=== PATIENT | female | born 1975 | race African-American/Black ===

== ENCOUNTER 2017-05-17 12:39 | Inpatient (IN) ==
[2017-05-17] MEDS ORDERED: PHENERGAN IM ONE (13:04)
[2017-05-17] MEDS ORDERED: NS 1,000 ML IV ONE (13:08)
[2017-05-17 13:21] LABS: MANUAL DIFF NEEDED? NO
[2017-05-17 13:22] LABS: BASO% 0.2 % (0.0-0.8); EOS# 0.01 X1000 (0.0-0.7); EOS% 0.1 % (0.0-10.0); HEMATOCRIT 47.2 % (37.0-47.0); HEMOGLOBIN 15.4 g/dL (12.0-16.0); IMM GRAN# 0.06 X1000 (0.0-0.04); IMM GRAN% 0.5 % (0.0-0.5); LYMPH# 1.57 X1000 (1.2-3.4); LYMPH% 12.5 % (20.5-51.1); MCH 27.3 PG (27-31); MCHC 32.6 g/dL (33-37); MCV 83.7 FL (81-99); MONO# 0.38 X1000 (0.11-0.59); NEUT% 83.7 % (42.2-75.2); PLT 360 X1000 (130-400); RBC 5.64 XMIL (4.2-5.4)
[2017-05-17 13:50] LABS: AGAP 20; ALBUMIN 4.1 g/dL (3.5-5.0); ALKALINE PHOSPHATASE 242 U/L (32-104); AMYLASE 40 U/L (20-200); BUN 11 mg/dL (8-22); CALCIUM 9.5 mg/dL (8.8-10.2); CHLORIDE 101 mmol/L (98-107); COSMO 291; GOT 13 U/L (10-30); GPT 13 U/L (10-36); LIPASE 12 U/L (13-60); POTASSIUM 4.2 mmol/L (3.5-5.1); SODIUM 141 mmol/L (136-145); TCO2 20 mmol/L (25-35); TOTAL PROTEIN 8.4 g/dL (6.3-8.3)
--- NOTE | 2017-05-17 14:14 | Diag Imaging Result Doc PS360 ---
EXAM: PORTABLE CHEST HISTORY: Low oxygen saturation TECHNIQUE: COMPARISON: 12/20/2016 FINDINGS: The lungs are well expanded. The heart is not enlarged. The vessels are not distended. No pneumonia. No pleural effusions identified. IMPRESSION: Negative chest. Electronically signed by Rd Mccray 05/17/2017 2:12 PM
[2017-05-17 14:15] LABS: URINE CULTURE PL NEEDED? NO
[2017-05-17 14:20] LABS: BILIRUBIN URINE NEGATIVE (NEGATIVE); BLOOD URINE NEGATIVE (NEGATIVE); CLARITY CLEAR (CLEAR); COLOR YELLOW; LEUKOCYTES URINE NEGATIVE (NEGATIVE); NITRITE URINE NEGATIVE (NEGATIVE); PROTEIN URINE NEGATIVE (NEGATIVE); UROBILINOGEN URINE NORMAL
[2017-05-17 14:39] LABS: URINE SOURCE CLEAN CATCH
[2017-05-17 14:41] LABS: URINE EPITHELIAL CELLS <10 /HPF (<10); URINE RBC <10 /HPF (<10); URINE WBC <10 /HPF (<10)
--- NOTE | 2017-05-17 15:38 | Diag Imaging Result Doc PS360 ---
EXAM: CT ABD/PELVIS W/ IV CONT ONLY HISTORY: abd pain, N/V TECHNIQUE: Dose reduction protocol COMPARISON: 11/19/2015 FINDINGS: The gallbladder is contracted. No calcified gallstones. There is fatty infiltration of the liver. There are scattered splenic granuloma. The spleen is not enlarged. Normal pancreas and adrenal glands. Normal enhancement of the kidneys. No hydronephrosis. Normal aorta. No bowel obstruction. Normal appendix. No abscess. The urinary bladder is distended and appears normal. The uterus has been removed. No pelvic mass. IMPRESSION: 1.Mild fatty infiltration of the liver 2.Hysterectomy 3.Normal appendix. No bowel obstruction. Electronically signed by Rd Mccray 05/17/2017 3:36 PM
[2017-05-17 15:53] LABS: BLOOD TYPE VENOUS; PCO2(98.6) 44 mmHg (40-60); PO2(98.6) 34 mmHg (30-55); SAMPLE BLOOD; SAO2 69.7 % (40.0-85.0); pH(98.6) 7.28 (7.32-7.43)
[2017-05-17] MEDS ORDERED: NS 1,000 ML IV PRN (16:33)
--- NOTE | 2017-05-17 16:38 | PROVIDER DOCUMENTATION ---
HPI-Abdominal Pain/GI Problem - General Chief Complaint: Nausea/Vomiting Stated Complaint: N/V/Abd Pain Time Seen by Provider: 05/17/17 13:00 Source: patient Allergies/Adverse Reactions: Patient Allergies Allergy/AdvReac Type Severity Reaction Status Date / Time No Known Allergies Allergy Verified 05/17/17 12:42 Home Medications: Home Medication List Medication Instructions Recorded Confirmed Last Taken Type Insulin Glargine [Lantus] 110 unit SQ HS 12/21/15 12/21/15 Unknown History Insulin Lispro [Humalog] 30 unit SQ DIRECTED 12/21/15 12/21/15 Unknown History Azithromycin [Zithromax Z-Giles] 250 mg PO DIRECTED #1 pkg 12/20/16 Unknown Rx Duloxetine [Cymbalta] 20 mg PO DAILY 12/20/16 12/20/16 Unknown History Guaifenesin/Codeine [Robitussin-AC] 10 ml PO Q4H PRN PRN #8 oz 12/20/16 Unknown Rx Lisinopril/Hydrochlorothiazide 1 tab PO DAILY 12/20/16 12/20/16 Unknown History [Lisinopril-Hctz 10-12.5 mg Tab] - History of Present Illness-ABD Nature of Presenting Problems: 42 y/o F with history of insulin dependent DM, HTN presents with N/V, abdominal pain that began yesterday. Patient states her BG has been in the 500's the past several days. She became lightheaded when walking to the bathroom today and had to sit on the floor, at that point she felt too lightheaded to get up out of the floor and a friend called EMS. On ROS, she endorses polyuria, dry mouth. Denies LOC, head injury, CP or SOB. Abdominal Pain Onset Location: reports: LLQ, generalized abdomen Quality of Pain: reports: aching Severity in ED: reports: moderate Onset/Duration: reports: 24 hours ago Timing: reports: still present Associated Symptoms: reports: nausea, vomiting, other (lightheadedness). denies : chest pain, cough, diaphoresis, diarrhea, fever/chills, shortness of breath, syncope Last BM: 24 hours ago Dark Stools Present?: reports: none noticed Rectal Bleeding: reports: none Review of Systems - Adult - REVIEW OF SYSTEMS - ADULT Constitutional: reports: no symptoms reported. denies: chills, fever Eyes: reports: no symptoms reported. denies: decreased vision, blurred vision, double vision Ears, Nose, Mouth & Throat: reports: no symptoms reported Cardiovascular: reports: no symptoms reported. denies: chest pain, edema, syncope Respiratory: reports: no symptoms reported. denies: cough, shortness of breath Gastrointestinal: reports: see HPI Genitourinary: reports: no symptoms reported. denies: dysuria, hematuria Musculoskeletal: reports: no symptoms reported. denies: back pain, joint pain Integumentary: reports: no symptoms reported. denies: itching, rash Neurological: reports: no symptoms reported. denies: dizziness/vertigo, headache/migraines, numbness, slurred speech, syncope Psychiatric: reports: no symptoms reported Endocrine: reports: no symptoms reported Hematologic/Lymphatic: reports: no symptoms reported Allergic/Immunologic: reports: no symptoms reported All Other Systems: Reviewed and Negative Past History - Adult - PAST MEDICAL HISTORY-ADULT Review of Records: reports: Old Records Reviewed, Nursing Assessment Review, Medications Reviewed, Social history reviewed & non-contributory. Major Childhood Illnesses: reports: denies history Cardiovascular: reports: HTN Genitourinary: reports: kidney disease Endocrine/Immune: reports: Diabetes - PRIOR SURGERIES/PROCEDURES Surgical/Procedure History: reports: hysterectomy, breast - IMMUNIZATION STATUS Childhood Immunizations: See Nurse Assessment Flu Vaccine: See Nurse Assessment - FAMILY HISTORY Family History: reviewed, not pertinent Physical Exam-General - PHYSICAL EXAM-ADULT Initial Vital Signs Reviewed: Yes - CONSTITUTIONAL General Appearance: alert, no apparent distress - EYES Eyes: PERRL/EOMI. negative: scleral icterus - HEAD, EARS, NOSE, MOUTH & THROAT HENMT: other (dry mucous membranes) - NECK Neck: non-tender, full range of motion, supple, normal inspection - RESPIRATORY Respiratory: chest non-tender, lungs clear, normal breath sounds, no pleuratic chest pain, no respiratory distress, no accessory muscle use - CARDIOVASCULAR Cardiovascular: normal peripheral pulses, regular rate, rhythm, no edema - GASTROINTESTINAL (ABDOMEN) Abdominal Exam: normal bowel sounds, soft, tenderness - MUSCULOSKELETAL Back Exam: normal inspection, no CVA tenderness, no vertebral tenderness - SKIN Integumentary: normal color - NEUROLOGIC 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 negative: aphasia, EOM palsy, facial droop, focal weakness, motor weakness, sensory deficit - PSYCHIATRIC Psych/Mental Status: normal mood/affect, normal thought content, normal thought process, oriented x 3 Progress - PLAN OF CARE/RESULTS Progress/Plan/Lab Results: Vital Signs - 8 hr 05/17/17 12:46 05/17/17 14:05 05/17/17 15:05 Temperature 96.9 F L Pulse Rate 88 100 H 94 H Respiratory Rate 20 16 16 Blood Pressure 117/79 147/91 112/71 O2 Sat by Pulse Oximetry 97 98 98 05/17/17 16:00 Temperature Pulse Rate 93 H Respiratory Rate 16 Blood Pressure 123/79 O2 Sat by Pulse Oximetry 97 Laboratory Results - last 24 hr 05/17/17 05/17/17 05/17/17 12:51 13:20 13:20 WBC 12.61 H RBC 5.64 H Hgb 15.4 Hct 47.2 H MCV 83.7 MCH 27.3 MCHC 32.6 L RDW Std Deviation 12.4 Plt Count 360 MPV 10.0 Immature Gran % (Auto) 0.5 Neut % (Auto) 83.7 H Lymph % (Auto) 12.5 L [place] % (Auto) 3.0 Eos % (Auto) 0.1 Baso % (Auto) 0.2 Immature Gran # (Auto) 0.06 H Neut # (Auto) 10.56 H Lymph # (Auto) 1.57 [place] # (Auto) 0.38 Eos # (Auto) 0.01 Baso # (Auto) 0.03 Specimen Type VBG pH VBG pCO2 VBG pO2 VBG HCO3 VBG O2 Saturation VBG Base Excess VBG Lactate Sodium 141 Potassium 4.2 Chloride 101 Carbon Dioxide 20 L Anion Gap 20 BUN 11 Creatinine 0.6 Estimated GFR/1.73 m2 > 60 BUN/Creatinine Ratio 18 Glucose 282 H POC Glucose 257 H Calculated Osmolality 291 Calcium 9.5 Total Bilirubin 0.30 AST 13 ALT 13 Alkaline Phosphatase 242 H Total Protein 8.4 H Albumin 4.1 Globulin 4.0 Albumin/Globulin Ratio 1.0 Amylase 40 Lipase 12 L Urine Source Urine Color Urine Clarity Urine Turbidity Urine pH Ur Specific [place] Urine Protein Ur Glucose (Stick) Urine Ketones Ur Ketones (Stick) Urine Blood Urine Nitrite Urine Bilirubin Urine Urobilinogen Urobilinogen Dipstick Urine Leukocytes Urine WBC (Auto) Urine RBC (Auto) U Epithel Cells (Auto) Urine Bacteria (Auto) Urine Microscopic RBC Urine WBC Urine Microscopic WBC Ur Epithelial Cells Urine Bacteria Urine Yeast Urine Glucose 05/17/17 05/17/17 14:05 15:30 WBC RBC Hgb Hct MCV MCH MCHC RDW Std Deviation Plt Count MPV Immature Gran % (Auto) Neut % (Auto) Lymph % (Auto) [place] % (Auto) Eos % (Auto) Baso % (Auto) Immature Gran # (Auto) Neut # (Auto) Lymph # (Auto) [place] # (Auto) Eos # (Auto) Baso # (Auto) Specimen Type VENOUS VBG pH 7.28 L VBG pCO2 44 VBG pO2 34 VBG HCO3 19.3 L VBG O2 Saturation 69.7 VBG Base Excess -6.0 L VBG Lactate 2.40 H Sodium Potassium Chloride Carbon Dioxide Anion Gap BUN Creatinine Estimated GFR/1.73 m2 BUN/Creatinine Ratio Glucose POC Glucose Calculated Osmolality Calcium Total Bilirubin AST ALT Alkaline Phosphatase Total Protein Albumin Globulin Albumin/Globulin Ratio Amylase Lipase Urine Source Cancelled Urine Color Cancelled Urine Clarity CLEAR Urine Turbidity Cancelled Urine pH Cancelled Ur Specific [place] Cancelled Urine Protein Cancelled Ur Glucose (Stick) Cancelled Urine Ketones 3+(Large) A Ur Ketones (Stick) Cancelled Urine Blood Cancelled Urine Nitrite Cancelled Urine Bilirubin Cancelled Urine Urobilinogen NORMAL Urobilinogen Dipstick Cancelled Urine Leukocytes Cancelled Urine WBC (Auto) Cancelled Urine RBC (Auto) Cancelled U Epithel Cells (Auto) Cancelled Urine Bacteria (Auto) Cancelled Urine Microscopic RBC <10 Urine WBC NEGATIVE Urine Microscopic WBC <10 Ur Epithelial Cells <10 Urine Bacteria NEGATIVE Urine Yeast PRESENT Urine Glucose 3+(500 mg/dL) A Orders Category Date Time Status Saline Loc DIRECTED Care 05/17/17 13:02 Active NPO Diet 05/17/17 13:02 Active CHEST-PORTABLE [RAD] Stat Exams 05/17/17 13:[address] ABD/PELVIS W/ IV CONT ONLY [CT] Stat Exams 05/17/17 15:00 Completed AMYLASE [CHEM] Stat Lab 05/17/17 13:20 Completed CBC WITH ELECTRONIC DIFF [HEME] Stat Lab 05/17/17 13:20 Completed COMPREHENSIVE METABOLIC PANEL [CHEM] Stat Lab 05/17/17 13:20 Completed LIPASE [CHEM] Stat Lab 05/17/17 13:20 Completed VBG [VENOUS BLOOD GAS] [RESP] Routine Lab 05/17/17 15:30 Completed ua [URINALYSIS PL W/POSS RFLX CULT] [URINALYSIS] Stat Lab 05/17/17 14:05 Completed 0.9% Sodium Chloride Inj [Ns] 1,000 ml Med 05/17/17 13:08 Discontinued IV 999 mls/hr Promethazine [Phenergan] Med 05/17/17 13:04 Discontinued 25 mg IM NOW ONE Result Diagrams: 05/17/17 13:20 05/17/17 13:20 Departure - Departure Date of Disposition Decision: 05/17/17 Time of Disposition Decision: 16:42 DIAGNOSIS: Metabolic acidosis, Hyperglycemia Nausea and vomiting Qualifiers: Vomiting type: unspecified Vomiting Intractability: unspecified Qualified Code( s): R11.2 - Nausea with vomiting, unspecified Abdominal pain Qualifiers: Abdominal location: unspecified location Qualified Code(s): R10.9 - Unspecified abdominal pain Disposition: ADMITTED INPATIENT 09 Certified Medical Emergency: Emergent Condition: Stable - Critical Care Note This patient required my direct & personal management of CC.: No Attestation - Physician/ MICHAEL Attestation Patient care was provided by Advanced Practice Provider:: Yes Advanced Practice Provider:: Charlene Eng Advanced Practice Provider documentation review:: The Mid-level provider documentation, treatment plan and medical decision making was reviewed by the physician who agrees with all treatment and medical decision making by the MLP.
[2017-05-17] MEDS ORDERED: PHENERGAN ONE (17:38)
[2017-05-17] MEDS ORDERED: PHENERGAN IV ONE (17:40)
[2017-05-17] MEDS ORDERED: SODIUM CHLORIDE 0.9% INJ ONE (18:25)
[2017-05-17] MEDS ORDERED: ZOFRAN IV PRN (19:22)
[2017-05-17] MEDS ORDERED: PHENERGAN IV PRN (19:22)
[2017-05-17] MEDS ORDERED: SODIUM CHLORIDE 0.9% INJ PRN (19:22)
[2017-05-17] MEDS: HUMALOG DOSE (PARKWAY) SUBQ SCH (20:25)
[2017-05-17] MEDS: NS 1,000 ML IV SCH (20:26)
[2017-05-18] MEDS ORDERED: IMODIUM PO ONE (00:37)
[2017-05-18] MEDS: HUMALOG DOSE (PARKWAY) SUBQ SCH ×4 (05:56→16:56)
[2017-05-18] MEDS: NS 1,000 ML IV SCH ×3 (05:57→13:19)
[2017-05-18 06:55] LABS: HEMOGLOBIN 13.1 g/dL (12.0-16.0); MCH 27.1 PG (27-31); MCV 84.9 FL (81-99); RBC 4.83 XMIL (4.2-5.4)
[2017-05-18 07:00] LABS: AGAP 10; ALBUMIN 3.3 g/dL (3.5-5.0); ALKALINE PHOSPHATASE 183 U/L (32-104); BUN 8 mg/dL (8-22); CALCIUM 8.2 mg/dL (8.8-10.2); CHLORIDE 102 mmol/L (98-107); COSMO 271; GOT 12 U/L (10-30); GPT 10 U/L (10-36); POTASSIUM 3.6 mmol/L (3.5-5.1); SODIUM 133 mmol/L (136-145); TCO2 21 mmol/L (25-35); TOTAL PROTEIN 6.5 g/dL (6.3-8.3)
[2017-05-18] MEDS ORDERED: PRILOSEC PO SCH (07:00)
[2017-05-18] MEDS ORDERED: PRINIVIL PO SCH (09:00)
[2017-05-18] MEDS ORDERED: HYDROCHLOROTHIAZIDE PO SCH (09:00)
[2017-05-18] MEDS: NEURONTIN PO SCH ×3 (09:28→16:56)
--- NOTE | 2017-05-18 10:59 | PROGRESS NOTE ---
DATE: 05/18/2017 SUBJECTIVE: The patient notes that she is feeling much better this morning. She is having much less abdominal pain, less coughing, less congestion. Denies any nausea, vomiting. States that she feels like she may be able to eat later on. OBJECTIVE: Vital Signs: On physical temp 99.4, pulse 87, respiratory rate 18, BP 112/59, satting 97% on room air. General: Patient is awake, alert, currently in no respiratory distress. Neck: Supple. CV: Regular rate. Chest: Clear. Abdomen: Soft. Much less tender than yesterday. Positive bowel sounds. LABS: CBC improved with WBCs at 10, sodium 133, glucose 207. ASSESSMENT: 1. Acute volume depletion secondary to nausea, vomiting, resolved. 2. Abdominal pain secondary to nausea and vomiting likely viral gastroenteritis appears resolved. 3. Diabetes. Blood sugars are elevated, although she did not have insulin yesterday. We will continue sliding scale and pattern Accu-Chek's today. We will advance her diet. PLAN: Hopefully, the patient can discharge home later this afternoon if she is able to eat and drink better. We will continue to follow. Continue IV fluids. We will not restart her home insulin yet until she is eating and will follow. cc: Tano Watts MD
[2017-05-18] MEDS ORDERED: TYLENOL PO ONE (13:38)
[2017-05-18 13:39] VITALS: BP 96/57
--- NOTE | 2017-05-18 14:11 | HISTORY AND PHYSICAL ---
CHIEF COMPLAINT: Nausea, vomiting, abdominal pain x24 hours. HISTORY OF PRESENT ILLNESS: This is a 42-year-old female with a history of insulin-dependent diabetes, and hypertension, who presented to the emergency room complaining of about 24 hours of abdominal pain, nausea, vomiting. She did state that her blood sugars have been in the 500s over the prior 3-4 days. Prior to coming to the emergency room she became lightheaded while walking and she had to sit on the floor. She felt that she was too lightheaded to get up and walk therefore EMS was called. She denied any chest pain, palpitations, syncope, diaphoresis. shortness of breath or cough. She denies any known sick contacts. PAST MEDICAL HISTORY: Insulin-dependent diabetes, hypertension, peripheral neuropathy. PAST SURGICAL HISTORY: Hysterectomy, and breast reduction. SOCIAL HISTORY: She denies alcohol, tobacco, or illicit drug use. ALLERGIES: No known drug allergies. HOME MEDICATIONS: Lisinopril/hydrochlorothiazide 10/12.5 daily, Humalog 30 units as directed, Lantus 110 units at bedtime, Norvasc 10 mg daily, Neurontin 800 mg 3 times a day. REVIEW OF SYSTEMS: A 14 point review of systems is discussed with the patient with pertinent positives being stated in the HPI. She denied chest pain, palpitations, syncope, diarrhea, constipation, cough, fever, chills, hematuria, dysuria, frequency, urgency. PHYSICAL EXAMINATION: GENERAL: This is a 42-year-old female who is lying in the bed, in no distress. VITAL SIGNS: Blood pressure is 123/79, with a heart rate of 90, respirations are 18, oxygen saturations are 95%-98% on room air. HEENT: Head is normocephalic, atraumatic. Pupils equal, round, react to light. EOMs are intact. Sclerae are anicteric. Mucous membranes are moist. NECK: Supple with trachea midline. CARDIOVASCULAR: Regular rate and rhythm. S1 and S2 are appreciated. PULMONARY: Breath sounds are clear with no increased work of breathing noted. GASTROINTESTINAL: Abdomen is soft, nontender, nondistended with bowel sounds in all 4 quadrants. BACK: No CVAT. No spine tenderness. MUSCULOSKELETAL: Good range of motion to joints. SKIN: Warm and dry. EXTREMITIES: No clubbing, cyanosis, or edema. Calves are nontender. Pulses are palpable x4. NEUROLOGIC: She is alert and oriented x3. LABS: WBC of 12.6, with a hemoglobin of 15.4, hematocrit 47.2, and platelets of 360,000. Sodium is 141, potassium 4.2, BUN 11, creatinine 0.6, with a glucose of 282. Lipase is 12. Acetone is negative. IMAGING: CT of the abdomen and pelvis revealed mild fatty infiltration of the liver, normal appendix, no bowel obstruction, no abscess, No pelvic mass. ASSESSMENT: This is a 42-year-old female who is sitting in the bed, in no distress. 1. Acute volume depletion secondary to nausea and vomiting. 2. Abdominal pain secondary to nausea and vomiting. This is likely gastroenteritis. 3. Insulin-dependent diabetes. 4. Hypertension. 5. Leukocytosis. 6. Hyperglycemia. PLAN: She will be admitted to the hospital, placed on telemetry. We will identify her home medications and continue as appropriate. We will give IV hydration with nausea medication, pattern blood glucose with sliding scale insulin. For DVT prophylaxis will use SCDs and for GI prophylaxis Prilosec. Further treatments pending hospital course. Dictated by ALEXA Bocanegra for Tano Watts MD cc: ALEXA Bocanegra MD
--- NOTE | 2017-05-19 13:07 | DISCHARGE SUMMARY ---
ADMISSION DATE: 05/17/2017 DISCHARGE DATE: 05/18/2017 DIAGNOSES: 1. Acute volume depletion secondary to nausea and vomiting resolved. 2. Abdominal pain secondary to nausea and vomiting likely gastroenteritis resolved. 3. Insulin-dependent diabetes. 4. Hypertension. 5. Leukocytosis resolved. DIAGNOSTICS: 1. 05/17/2017 chest x-ray revealed negative chest. Lungs are well expanded. Heart is not enlarged. Vessels are not distended. No pneumonia and no pleural effusions. 2. CT of the abdomen and pelvis. Mild fatty infiltration of the liver, hysterectomy and normal appendix. No bowel obstruction. HOSPITAL COURSE: Ms. Rivera presented to the emergency room with about 24 hours of abdominal pain, nausea, vomiting as well as elevated blood sugars over the prior 3-4 days. She did have an episode of feeling lightheaded while walking for which she presented to the emergency room. She was found to have a white count of 12.6. It did decrease to 10.35. Blood sugar stayed in the 180- 250 range. We did monitor her and we gave IV hydration. Diet was advanced through the day and she was able to have a GI soft diet with no nausea, vomiting or abdominal pain. Therefore, she is being discharged. DISCHARGE PHYSICAL EXAMINATION: Cardiovascular: Regular rate and rhythm S1, S2 appreciated. Pulmonary: Breath sounds are clear. No increased work of breathing noted. Gastrointestinal: Abdomen is soft, nontender, nondistended with bowel sounds in all 4 quadrants. Extremities: No clubbing, cyanosis, or edema. Calves are nontender. Pulses are palpable x4. DISCHARGE MEDICATIONS: Lisinopril hydrochlorothiazide 10/12.5 daily, Humalog 30 units as directed. Lantus 110 units at bedtime. Norvasc 10 mg daily. Neurontin 800 mg t.i.d. She has been instructed not to start her Lantus until she is eating normally. FOLLOWUP: Her primary care physician in 1-2 weeks sooner if needed. She is being discharged home in stable condition with family members. TIME SPENT: This is a greater than 30 minute discharge. Dictated by ALEXA Bocanegra for Tano Watts MD cc: ALEXA Bocanegra MD
== END 2017-05-18 17:08 | disposition home or self-care (01) ==
LOC: P.ED 12:39 → P.MEDSURG 18:28
PROVIDERS: ATTEND Family Medicine

== ENCOUNTER 2017-05-30 19:24 | Inpatient (IN) ==
[2017-05-30 21:10] LABS: MANUAL DIFF NEEDED? NO
[2017-05-30 21:14] LABS: BASO% 0.3 % (0.0-0.8); EOS# 0.02 X1000 (0.0-0.7); EOS% 0.2 % (0.0-10.0); HEMATOCRIT 46.6 % (37.0-47.0); HEMOGLOBIN 15.5 g/dL (12.0-16.0); IMM GRAN# 0.02 X1000 (0.0-0.04); IMM GRAN% 0.2 % (0.0-0.5); LYMPH# 1.45 X1000 (1.2-3.4); LYMPH% 14.8 % (20.5-51.1); MCH 27.3 PG (27-31); MCHC 33.3 g/dL (33-37); MCV 82.2 FL (81-99); MONO# 0.42 X1000 (0.11-0.59); MONO% 4.3 % (1.7-9.3); NEUT% 80.2 % (42.2-75.2); PLT 363 X1000 (130-400); RBC 5.67 XMIL (4.2-5.4)
[2017-05-30] MEDS ORDERED: SODIUM CHLORIDE 0.9% INJ ONE (21:26)
[2017-05-30] MEDS ORDERED: LR 1,000 ML IV PRN (21:26)
[2017-05-30] MEDS ORDERED: MORPHINE IV ONE (21:26)
[2017-05-30] MEDS ORDERED: PHENERGAN IV ONE (21:26)
[2017-05-30 21:37] LABS: AGAP 19; ALBUMIN 4.1 g/dL (3.5-5.0); ALKALINE PHOSPHATASE 258 U/L (32-104); AMYLASE 39 U/L (20-200); BUN 10 mg/dL (8-22); CHLORIDE 97 mmol/L (98-107); COSMO 291; GOT 21 U/L (10-30); GPT 15 U/L (10-36); LIPASE 16 U/L (13-60); POTASSIUM 5.3 mmol/L (3.5-5.1); SODIUM 139 mmol/L (136-145); TCO2 23 mmol/L (25-35); TOTAL PROTEIN 8.1 g/dL (6.3-8.3)
[2017-05-30] MEDS ORDERED: HUMALOG (PARKWAY) IV ONE (23:08)
[2017-05-30] MEDS ORDERED: LANTUS INSULIN (PARKWAY) SUBQ ONE (23:09)
[2017-05-30] MEDS ORDERED: HUMALOG DOSE (PARKWAY) SUBQ ONE (23:11)
[2017-05-30] MEDS ORDERED: HUMALOG (PARKWAY) ONE (23:16)
[2017-05-30 23:30] LABS: BILIRUBIN URINE NEGATIVE (NEGATIVE); BLOOD URINE NEGATIVE (NEGATIVE); CLARITY CLEAR (CLEAR); COLOR YELLOW; LEUKOCYTES URINE NEGATIVE (NEGATIVE); NITRITE URINE NEGATIVE (NEGATIVE); PROTEIN URINE NEGATIVE (NEGATIVE); SP GRAVITY URINE 1.015; UROBILINOGEN URINE NORMAL
[2017-05-30 23:37] LABS: URINE EPITHELIAL CELLS <10 /HPF (<10); URINE RBC <10 /HPF (<10); URINE WBC <10 /HPF (<10)
[2017-05-30 23:41] LABS: URINE CULTURE PL NEEDED? YES; URINE SOURCE CATH
[2017-05-31] MEDS ORDERED: REGLAN IV ONE ×2 (00:33→02:18)
[2017-05-31 02:13] LABS: AGAP 13; ALBUMIN 3.8 g/dL (3.5-5.0); ALKALINE PHOSPHATASE 248 U/L (32-104); BUN 10 mg/dL (8-22); CALCIUM 9.8 mg/dL (8.8-10.2); CHLORIDE 104 mmol/L (98-107); COSMO 293; GOT 12 U/L (10-30); GPT 13 U/L (10-36); SODIUM 140 mmol/L (136-145); TCO2 23 mmol/L (25-35); TOTAL PROTEIN 7.8 g/dL (6.3-8.3)
[2017-05-31] MEDS ORDERED: HUMALOG (PARKWAY) IV ONE (02:19)
[2017-05-31] MEDS ORDERED: NS 1,000 ML IV ONE (02:20)
[2017-05-31] MEDS ORDERED: HUMULIN R DOSE (PARKWAY) SUBQ ONE (02:20)
[2017-05-31] MEDS ORDERED: HUMALOG (PARKWAY) ONE (02:38)
[2017-05-31] MEDS: ZOFRAN IV PRN (02:49)
--- NOTE | 2017-05-31 02:53 | PROVIDER DOCUMENTATION ---
This chart was entered by Sil Murillo Scribe, acting as scribe for Uriah Foster MD. HPI-General Adult - General Chief Complaint: Vomiting Stated Complaint: VOMITING Time Seen by Provider: 05/30/17 21:01 Source: patient Allergies/Adverse Reactions: Patient Allergies Allergy/AdvReac Type Severity Reaction Status Date / Time No Known Allergies Allergy Verified 05/17/17 12:42 Home Medications: Home Medication List Medication Instructions Recorded Confirmed Last Taken Type Insulin Glargine [Lantus] 110 unit SQ HS 12/21/15 05/17/17 05/16/17 21:00 History Insulin Lispro [Humalog] 30 unit SQ DIRECTED 12/21/15 05/17/17 05/16/17 21: 00 History Lisinopril/Hydrochlorothiazide 1 tab PO DAILY 12/20/16 05/17/17 Unknown History [Lisinopril-Hctz 10-12.5 mg Tab] Amlodipine Besylate [Norvasc] 10 mg PO DAILY 05/17/17 05/17/17 05/16/17 17:00 History Gabapentin [Neurontin] 800 mg PO TID 05/17/17 05/17/17 Unknown History Metoclopramide HCl [Reglan] 5 mg PO AC + HS #120 tablet 05/31/17 Unknown Rx - History of Present Illness -Gen Adult Nature of Presenting Problems: Pt is a 42 year old female who came to the ED with a cc of vomiting since this morning. Pt reports her blood sugar runs high in the mornings. Location of Pain/Injury: reports: none Pain Radiation: reports: no radiation Quality of Pain: reports: none Severity: reports: mild Onset/Duration: reports: this morning Timing: reports: still present Context/Activities at Onset: reports: none Modifying Factors: improves with: nothing Associated Symptoms: reports: nausea, vomiting, weakness Similar Symptoms Previously?: Yes Recently seen or treated by another doctor?: Yes - Diabetes Related Context Context: reports: high blood sugar Review of Systems - Adult - REVIEW OF SYSTEMS - ADULT Constitutional: denies: chills, fever Eyes: reports: no symptoms reported Ears, Nose, Mouth & Throat: reports: no symptoms reported Cardiovascular: denies: chest pain, syncope Respiratory: reports: no symptoms reported Gastrointestinal: reports: nausea, vomiting. denies: diarrhea, frequent heartburn Genitourinary: denies: flank pain, hematuria Musculoskeletal: reports: no symptoms reported Integumentary: reports: no symptoms reported Neurological: reports: no symptoms reported Psychiatric: reports: no symptoms reported Endocrine: reports: no symptoms reported Hematologic/Lymphatic: reports: no symptoms reported Allergic/Immunologic: reports: no symptoms reported All Other Systems: Reviewed and Negative Past History - Adult - PAST MEDICAL HISTORY-ADULT Review of Records: reports: Old Records Reviewed, Nursing Assessment Review, Medications Reviewed, Social history reviewed & non-contributory. Major Childhood Illnesses: reports: denies history Cardiovascular: reports: HTN Respiratory: reports: denies history Gastrointestinal: reports: denies history Obstetrical/Gynecological: reports: denies history Genitourinary: reports: kidney disease Musculoskeletal: reports: denies history Neurological: reports: denies history Endocrine/Immune: reports: Diabetes Other Conditions: reports: denies history - PRIOR SURGERIES/PROCEDURES Surgical/Procedure History: reports: hysterectomy, breast - IMMUNIZATION STATUS Childhood Immunizations: See Nurse Assessment Flu Vaccine: See Nurse Assessment - FAMILY HISTORY Family History: reviewed, not pertinent Physical Exam-General - PHYSICAL EXAM-ADULT Initial Vital Signs Reviewed: Yes - CONSTITUTIONAL General Appearance: alert, mild distress - EYES Eyes: PERRL/EOMI, pink conjunctivae - HEAD, EARS, NOSE, MOUTH & THROAT HENMT: normocephalic/atraumatic, moist mucous membranes - NECK Neck: non-tender, full range of motion - RESPIRATORY Respiratory: chest non-tender, lungs clear, normal breath sounds - CARDIOVASCULAR Cardiovascular: normal peripheral pulses, regular rate, rhythm - GASTROINTESTINAL (ABDOMEN) Abdominal Exam: normal bowel sounds, soft, tenderness (suprapubic) - MUSCULOSKELETAL Back Exam: normal inspection, no CVA tenderness Extremity: normal range of motion, non-tender - SKIN Integumentary: normal turgor, warm/dry - NEUROLOGIC Neurologic: grossly normal - PSYCHIATRIC Psych/Mental Status: normal mood/affect, normal thought content, normal thought process, oriented x 3 Progress - PLAN OF CARE/RESULTS Progress/Plan/Lab Results: Vital Signs - 8 hr 05/30/17 19:53 Temperature 97.5 F L Pulse Rate 111 H Respiratory Rate 16 Blood Pressure 154/80 O2 Sat by Pulse Oximetry 100 Laboratory Results - last 24 hr 05/30/17 05/30/17 20:54 20:57 WBC 9.78 RBC 5.67 H Hgb 15.5 Hct 46.6 MCV 82.2 MCH 27.3 MCHC 33.3 RDW Std Deviation 12.4 Plt Count 363 MPV 10.0 Immature Gran % (Auto) 0.2 Neut % (Auto) 80.2 H Lymph % (Auto) 14.8 L Coffee % (Auto) 4.3 Eos % (Auto) 0.2 Baso % (Auto) 0.3 Immature Gran # (Auto) 0.02 Neut # (Auto) 7.84 H Lymph # (Auto) 1.45 Coffee # (Auto) 0.42 Eos # (Auto) 0.02 Baso # (Auto) 0.03 POC Glucose 275 H Orders Category Date Time Status AMYLASE [CHEM] Stat Lab 05/30/17 20:54 Received CBC WITH DIFF [HEME] Stat Lab 05/30/17 20:54 Completed COMPREHENSIVE METABOLIC PANEL [CHEM] Stat Lab 05/30/17 20:54 Received LIPASE [CHEM] Stat Lab 05/30/17 20:54 Received TEST-URINE [PREG] Stat Lab 05/30/17 20:[address] W/POSS RFLX CULT [URINALYSIS] Stat Lab 05/30/17 20:44 Uncollected Result Diagrams: 05/30/17 20:54 05/31/17 01:05 - REASSESSMENT Reassessment #1 Time Reassessed: 23:00 Status: improving Departure - Departure Date of Disposition Decision: 05/31/17 Time of Disposition Decision: 02:30 DIAGNOSIS: Diabetic gastroparesis Intractable vomiting Qualifiers: Vomiting type: cyclical vomiting Nausea presence: with nausea Qualified Code(s) : G43.A1 - Cyclical vomiting, intractable Disposition: ADMITTED INPATIENT 09 Certified Medical Emergency: Emergent Condition: Fair Additional Freetext Instructions: IT IS CRITICAL THAT BLOOD SUGAR BE WELL CONTROLLED OR VOMITING AFTER EATING WILL CONTINUE THE REGLAN WILL HELP GASTROPARESIS ED Follow Up Instructions: You have been treated by a care provider in the Emergency Department. These instructions are being provided to you so you can have an understanding of how to care for yourself upon discharge. Upon discharge from the Emergency Department, you are responsible for making arrangements for follow-up care by a physician of your choice. Take all prescribed medications as directed. Return to the Emergency Department immediately for any new or worsening symptoms. You may call the Physician Referral phone number at [phone] to obtain a list of Physicians who are taking new patients. Prescriptions: Metoclopramide HCl [Reglan] 5 mg PO AC + HS #120 tablet Referrals and Follow-Ups: Deep Cruz MD [Primary Care Provider] - Work Excuses: Return to School/Parent Work - Critical Care Note This patient required my direct & personal management of CC.: No This chart was documented by the indicated scribe, (Sil Murillo Scribe) and accurately reflects the services I performed and decisions made by me, Uriah Foster MD, as attested by the provider's signature.
--- NOTE | 2017-05-31 08:03 | Diag Imaging Result Doc PS360 ---
EXAM: ABDOMEN FLAT/UPRIGHT - 05/31/2017 HISTORY: VOMITING TECHNIQUE: Supine and upright abdomen COMPARISON: 11/19/2015 FINDINGS: There is a large amount retained fecal debris in the colon suggesting constipation. The bowel gas pattern otherwise appears nonspecific and nonobstructive. There is no free air identified. There are some calcified granulomas from old granulomatous disease at the spleen noted. There are a few small calcifications at the medial lower abdomen which are stable and compatible phlebolith. IMPRESSION: Evidence of constipation. Nonspecific bowel gas pattern otherwise. Electronically signed by Eros Bosch 05/31/2017 8:01 AM
[2017-05-31 09:59] LABS: HEMOGLOBIN A1C 11.3 % (4.8-6.0)
[2017-05-31] MEDS: NORVASC PO SCH (10:33)
[2017-05-31] MEDS: HUMALOG DOSE (PARKWAY) SUBQ SCH ×3 (12:06→21:50)
[2017-05-31] MEDS: REGLAN IV SCH ×3 (12:13→23:00)
[2017-05-31] MEDS: NEURONTIN PO SCH ×2 (13:26→21:49)
[2017-05-31] MEDS ORDERED: CITRATE OF MAGNESIA PO ONE (15:52)
--- NOTE | 2017-05-31 16:47 | HISTORY AND PHYSICAL ---
CHIEF COMPLAINT: Vomiting. HISTORY OF PRESENT ILLNESS: This is a 42-year-old female who presented to the emergency room complaining of vomiting off and on through the day as well as high blood sugar. She does have a long history of vomiting being admitted from May 17 to with the same symptoms. Abdominal x-ray revealed constipation. Blood sugars were in the 270-370 range in the emergency room. She was given IV hydration as well as Reglan and insulin in the emergency room, and admitted for further evaluation and treatment. PAST MEDICAL HISTORY: Insulin-dependent diabetes, hypertension, peripheral neuropathy, noncompliance. PAST SURGICAL HISTORY: Hysterectomy and breast reduction. SOCIAL HISTORY: She denies alcohol, tobacco, or illicit drug use. ALLERGIES: No known drug allergies. HOME MEDICATIONS: Humalog 30 units subcutaneous before meals, Lantus 110 units at bedtime, Neurontin 800 mg t.i.d., Norvasc 10 mg daily, lisinopril/ hydrochlorothiazide 1 tablet daily, Reglan 5 mg with meals and at bedtime. REVIEW OF SYSTEMS: A 14 point review of systems is discussed with patient with pertinent positives being nausea and abdominal pain. She denied chest pain, palpitations, dizziness, syncope, diarrhea, cough, fever, chills, hematuria, dysuria, frequency or urgency. PHYSICAL EXAMINATION: GENERAL: This is a 42-year-old female who is lying in the bed with no distress. VITAL SIGNS: Blood pressure is 127/72 with a heart rate of 88, respirations are 16, temperature is 97.5 degrees with room air saturations of 99-100%. HEENT: Head is normocephalic, atraumatic. Pupils equal, round, reactive to light. EOMs are intact. Sclerae anicteric. Mucous membranes are moist. NECK: Supple with trachea midline. CARDIOVASCULAR: Regular rate and rhythm. S1 and S2 appreciated. No rubs, murmurs, or gallops noted. PULMONARY: Breath sounds are clear with no increased work of breathing noted. Chest does rise and fall symmetrically with respiration. GASTROINTESTINAL: Abdomen is soft, nontender, nondistended with bowel sounds in all 4 quadrants. BACK: No CVAT. No spine tenderness. MUSCULOSKELETAL: Good range of motion of joints. NEUROLOGIC: She is alert and oriented x3. Cranial nerves 2-12 grossly intact. EXTREMITIES: No clubbing, cyanosis, or edema. Calves are nontender. Pulses are palpable x4. LABS: WBC is 9.7 with hemoglobin 15.5, hematocrit 46.6, platelets of 363. Sodium is 139, potassium 5.3, BUN 10, creatinine 0.6 with a glucose of 361. Urinalysis reveals 3+ ketones and 3+ glucose otherwise negative. Abdominal x-ray reveals constipation with nonspecific bowel gas pattern. Otherwise there is no free air or obstruction identified. ASSESSMENT: 1. Nausea and vomiting. 2. Insulin-dependent diabetes mellitus with a hemoglobin A1c of 11.3. 3. Peripheral neuropathy. 4. Hypertension. 5. Noncompliance. PLAN: 1. The patient will be admitted to the hospital. We will give IV hydration, pattern blood glucose with sliding scale insulin. We will continue her home Lantus insulin as well as her Neurontin and Norvasc. We will Hemoccult blood, vomitus as well as stool. We will start Reglan IV q.6 hours. 2. The patient certainly will need outpatient followup with GI. We will schedule an appointment before discharge. Further treatment pending hospital course. Dictated by ALEXA Bocanegra for Tano Watts MD cc: ALEXA Bocanegra MD
[2017-05-31] MEDS ORDERED: LANTUS INSULIN (PARKWAY) SUBQ SCH (21:00)
[2017-05-31] MEDS: LANTUS INSULIN (PARKWAY) SUBQ SCH (22:23)
[2017-06-01] MEDS: REGLAN IV SCH ×3 (05:04→18:34)
[2017-06-01] MEDS: NEURONTIN PO SCH ×3 (05:05→21:08)
[2017-06-01] MEDS: HUMALOG DOSE (PARKWAY) SUBQ SCH ×4 (06:19→21:10)
[2017-06-01 07:29] LABS: OCCULT BLOOD 1 POSITIVE (NEGATIVE)
[2017-06-01] MEDS: NORVASC PO SCH ×2 (08:35→12:06)
[2017-06-01] MEDS: ROCEPHIN 1 GM/NS 1 GM/50 ML IVPB IV SCH (08:50)
[2017-06-01 09:06] LABS: HEMATOCRIT 40.9 % (37.0-47.0); HEMOGLOBIN 13.2 g/dL (12.0-16.0); MCH 27.4 PG (27-31); MCHC 32.3 g/dL (33-37); MCV 84.9 FL (81-99); MPV 9.7 FL (7.4-10.4); RBC 4.82 XMIL (4.2-5.4)
[2017-06-01 09:26] LABS: AGAP 7; ALBUMIN 3.4 g/dL (3.5-5.0); ALKALINE PHOSPHATASE 190 U/L (32-104); BUN 9 mg/dL (8-22); CALCIUM 8.6 mg/dL (8.8-10.2); CHLORIDE 97 mmol/L (98-107); COSMO 274; GOT 11 U/L (10-30); GPT 11 U/L (10-36); MAGNESIUM 2.2 mg/dL (1.5-2.7); SODIUM 133 mmol/L (136-145); TCO2 29 mmol/L (25-35); TOTAL PROTEIN 6.4 g/dL (6.3-8.3)
[2017-06-01] MEDS ORDERED: TYLENOL PO PRN (12:08)
--- NOTE | 2017-06-01 13:03 | PROGRESS NOTE ---
DATE: 06/01/2017 SUBJECTIVE: Patient states she is still nauseated, still having abdominal pain. Denies any fevers or chills. Denies any dysuria. OBJECTIVE: Temperature 97 degrees, pulse 90, respiratory 18, BP 100/57, 97% on room air.General: Patient is awake and alert. She is sitting in bed. She is ordering breakfast. HEENT: Normocephalic, atraumatic. Neck: Supple. CV: Regular rate. Chest: Relatively clear. Abdomen: Soft. Extremities: Moves all extremities. Neurologic: No focal changes. LABS: Gram positive cocci in urine, heme-positive stool. ASSESSMENT: 1. Gram-positive UTI. We will start patient on antibiotics. 2. Hypertension. 3. Insulin-dependent diabetes with an A1c grossly elevated at 11.3. 4. Peripheral neuropathy, diabetic neuropathy, secondary to poor control of diabetes. 5. Diabetic gastroparesis. 6. Medical noncompliance. 7. Hyperkalemia. 8. Heme-positive stools likely secondary to her acute gastritis from her gastroparesis. PLAN: Patient's hemoglobin and hematocrits have remained stable. We will recheck her labs again today and continue to follow. She certainly will need endoscopy although it does not appear to be an emergent need at this point. We will place her on antibiotics for UTI and continue to follow. Hopefully home in the next few days. cc: Tano Watts MD
[2017-06-01] MEDS ORDERED: ULTRAM PO PRN (15:42)
[2017-06-01] MEDS: LANTUS INSULIN (PARKWAY) SUBQ SCH (21:09)
[2017-06-02] MEDS: REGLAN IV SCH ×4 (00:01→18:48)
[2017-06-02 06:14] LABS: HEMATOCRIT 41.8 % (37.0-47.0); HEMOGLOBIN 13.7 g/dL (12.0-16.0); MCH 27.6 PG (27-31); MCHC 32.8 g/dL (33-37); MCV 84.1 FL (81-99); MPV 9.7 FL (7.4-10.4); RBC 4.97 XMIL (4.2-5.4)
[2017-06-02] MEDS: HUMALOG DOSE (PARKWAY) SUBQ SCH ×3 (06:24→17:01)
[2017-06-02] MEDS: NEURONTIN PO SCH ×2 (06:27→14:32)
[2017-06-02 06:34] LABS: AGAP 9; BUN 10 mg/dL (8-22); CALCIUM 8.7 mg/dL (8.8-10.2); CHLORIDE 101 mmol/L (98-107); COSMO 278; POTASSIUM 3.6 mmol/L (3.5-5.1); SODIUM 136 mmol/L (136-145); TCO2 26 mmol/L (25-35)
[2017-06-02] MEDS: ROCEPHIN 1 GM/NS 1 GM/50 ML IVPB IV SCH (08:02)
[2017-06-02] MEDS: NORVASC PO SCH (08:11)
[2017-06-02] MEDS: ZOFRAN IV PRN (12:49)
[2017-06-02 16:54] VITALS: BP 106/60
--- NOTE | 2017-06-03 10:56 | DISCHARGE SUMMARY ---
ADMISSION DATE: 05/31/2017 DISCHARGE DATE: 06/02/2017 DIAGNOSES: 1. Enterococcus urinary tract infection, pansensitive. 2. Insulin-dependent diabetes with hyperglycemia with hemoglobin A1c of 11.3. 3. Peripheral neuropathy. 4. Hypertension. 5. Diabetic gastroparesis. 6. Heme-positive stools likely secondary to her acute gastritis from gastroparesis. 7. Hyperkalemia, resolved. 8. Microbiology: Urine culture revealed enterococcus. DIAGNOSTICS: 1. Abdominal x-ray. 2. Evidence of constipation with nonspecific bowel gas pattern, otherwise. HOSPITAL COURSE: Ms. Rivera presented to the emergency room complaining of nausea and vomiting as well as abdominal discomfort. She was found to have constipation on abdominal x-ray for which she was given Mag citrate having good results. Her nausea and vomiting did subside, and her diet has been advanced to a diabetic diet which she has tolerated 100% of the last 4 meals with no difficulty. Blood sugars have ranged in the 218 to 352 range and being 190 to 218 in the last 18 hours. DISCHARGE PHYSICAL EXAMINATION: Cardiovascular: Regular rate and rhythm. S1 and S2 appreciated. Pulmonary: Breath sounds are clear. No increased work of breathing noted. Gastrointestinal: Abdomen is soft, nontender, nondistended. Bowel sounds in all 4 quadrants. Back: No CVAT. No spine tenderness. Musculoskeletal: Good range of motion of joints. Extremities: No clubbing, cyanosis, or edema. Calves are nontender. Pulses are palpable x4. Neurologic: She is alert and oriented x3. Cranial nerves 2-12 grossly intact. DISCHARGE MEDICATIONS: 1. Humalog 30 units subcutaneously t.i.d. before meals. 2. Lantus 20 units subcutaneous at bedtime. 3. Neurontin 800 mg t.i.d. 4. Norvasc 10 mg daily. 5. Lisinopril hydrochlorothiazide 10/12.5 daily. 6. Reglan 5 mg before meals and bedtime. 7. Augmentin 875, 125, 1 b.i.d. for 10 days. FOLLOWUP: 1. She is to follow up with her primary care physician in the next 1-[address] Chandler Pollard, Gastroenterology, for evaluation for gastroparesis and Hemoccult-positive stools with a stable hemoglobin and hematocrit. Appointment will be made before discharge. She is being discharged home in stable condition with family members. TIME SPENT: This is a greater than 30 minute discharge. Dictated by ALEXA Bocanegra for Tano Watts MD cc: ALEXA Bocanegra MD
== END 2017-06-02 19:30 | disposition home or self-care (01) ==
LOC: P.MEDSURG 19:24 → P.ED 19:24 → OBSVTOIN 05-31 02:53
PROVIDERS: ATTEND Family Medicine

== ENCOUNTER 2017-06-04 21:36 | Inpatient (IN) ==
[2017-06-04] MEDS ORDERED: ZOFRAN IV ONE ×2 (21:57→23:13)
[2017-06-04] MEDS ORDERED: DILAUDID IV ONE (21:57)
[2017-06-04] MEDS ORDERED: NS 1,000 ML IV ONE (21:58)
[2017-06-04] MEDS ORDERED: DILAUDID ONE (22:02)
[2017-06-04 22:03] LABS: MANUAL DIFF NEEDED? NO
[2017-06-04 22:07] LABS: BASO% 0.3 % (0.0-0.8); EOS# 0.06 X1000 (0.0-0.7); EOS% 0.6 % (0.0-10.0); HEMATOCRIT 46.9 % (37.0-47.0); HEMOGLOBIN 15.4 g/dL (12.0-16.0); IMM GRAN# 0.03 X1000 (0.0-0.04); IMM GRAN% 0.3 % (0.0-0.5); LYMPH# 2.46 X1000 (1.2-3.4); LYMPH% 22.9 % (20.5-51.1); MCH 27.2 PG (27-31); MCHC 32.8 g/dL (33-37); MCV 82.7 FL (81-99); MONO# 0.67 X1000 (0.11-0.59); MONO% 6.2 % (1.7-9.3); MPV 9.7 FL (7.4-10.4); NEUT% 69.7 % (42.2-75.2); PLT 400 X1000 (130-400); RBC 5.67 XMIL (4.2-5.4)
--- NOTE | 2017-06-04 22:07 | PROVIDER DOCUMENTATION ---
This chart was entered by Geno Villarreal Scribe, acting as scribe for Grupo Akers MD. HPI-Abdominal Pain/GI Problem - General Chief Complaint: Abdominal Pain Stated Complaint: VOMITING BLOOD Time Seen by Provider: 06/04/17 21:57 Source: patient Allergies/Adverse Reactions: Patient Allergies Allergy/AdvReac Type Severity Reaction Status Date / Time No Known Allergies Allergy Verified 06/04/17 21:49 Home Medications: Home Medication List Medication Instructions Recorded Confirmed Last Taken Type Insulin Lispro [Humalog] 30 unit SQ TID AC 12/21/15 06/04/17 05/30/17 08:00 History Lisinopril/Hydrochlorothiazide 1 tab PO DAILY 12/20/16 06/04/17 05/30/17 09:00 History [Lisinopril-Hctz 10-12.5 mg Tab] Amlodipine Besylate [Norvasc] 10 mg PO DAILY 05/17/17 06/04/17 05/30/17 09:00 History Gabapentin [Neurontin] 800 mg PO TID 05/17/17 06/04/17 05/29/17 21:00 History Metoclopramide HCl [Reglan] 5 mg PO AC + HS #120 tablet 05/31/17 06/04/17 Unknown Rx Insulin Glargine [Lantus] 20 unit SQ HS #0 06/02/17 06/04/17 05/29/17 21:00 Rx - History of Present Illness-ABD Nature of Presenting Problems: 42 year old BF with history of diabetes and gastroparesis who presents to the ED with a cc of worsening generalized ABD pain with associated nausea and vomiting x1 week. PT was discharged from the hospital 2 days ago for same complaint of abdominal pain, nausea, and vomiting. Abdominal Pain Onset Location: reports: generalized abdomen Pain Radiation: reports: no radiation Quality of Pain: reports: aching Severity in ED: reports: moderate Onset/Duration: reports: 1 week ago Timing: reports: still present Associated Symptoms: reports: nausea, vomiting Bruising or Bleeding Gums?: No Similar Symptoms Previously?: Yes Recently seen or treated by another doctor?: Yes Review of Systems - Adult - REVIEW OF SYSTEMS - ADULT Constitutional: denies: chills, fever Eyes: reports: no symptoms reported Ears, Nose, Mouth & Throat: reports: no symptoms reported Cardiovascular: denies: chest pain, palpitations Respiratory: denies: cough, shortness of breath Gastrointestinal: reports: abdominal pain, nausea, vomiting Genitourinary: reports: no symptoms reported Musculoskeletal: reports: no symptoms reported Integumentary: reports: no symptoms reported Neurological: reports: no symptoms reported Psychiatric: reports: no symptoms reported Endocrine: reports: no symptoms reported Hematologic/Lymphatic: reports: no symptoms reported Allergic/Immunologic: reports: no symptoms reported All Other Systems: Reviewed and Negative Past History - Adult - PAST MEDICAL HISTORY-ADULT Review of Records: reports: Nursing Assessment Review, Medications Reviewed Major Childhood Illnesses: reports: denies history Cardiovascular: reports: HTN Respiratory: reports: denies history Gastrointestinal: reports: denies history Obstetrical/Gynecological: reports: denies history Genitourinary: reports: kidney disease Musculoskeletal: reports: denies history Neurological: reports: denies history Endocrine/Immune: reports: Diabetes Other Conditions: reports: denies history - PRIOR SURGERIES/PROCEDURES Surgical/Procedure History: reports: hysterectomy, breast - IMMUNIZATION STATUS Childhood Immunizations: See Nurse Assessment Flu Vaccine: See Nurse Assessment - FAMILY HISTORY Family History: reviewed, not pertinent - SOCIAL HISTORY Smoking: non-smoker Substance Use: none/never Alcohol Use Frequency: never Physical Exam-General - PHYSICAL EXAM-ADULT Initial Vital Signs Reviewed: Yes - CONSTITUTIONAL General Appearance: alert, moderate distress, other (activly vomiting) - RESPIRATORY Respiratory: chest non-tender, lungs clear, normal breath sounds - CARDIOVASCULAR Cardiovascular: tachycardia - GASTROINTESTINAL (ABDOMEN) Abdominal Exam: tenderness (generalized). negative: guarding, rebound - MUSCULOSKELETAL Back Exam: normal inspection, no CVA tenderness, no vertebral tenderness Extremity: normal range of motion, non-tender Peripheral Pulses: radial (R): 2+, radial (L): 2+ - SKIN Integumentary: normal color, warm/dry - NEUROLOGIC Neurologic: grossly normal, no motor/sensory deficits - PSYCHIATRIC Psych/Mental Status: normal thought content, normal thought process, oriented x 3, anxious Progress - PLAN OF CARE/RESULTS Progress/Plan/Lab Results: Vital Signs - 8 hr 06/04/17 21:42 Temperature 97.9 F Pulse Rate 119 H Respiratory Rate 22 Blood Pressure 126/89 O2 Sat by Pulse Oximetry 100 Orders Category Date Time Status Saline Loc DIRECTED Care 06/04/17 21:51 Active NPO Diet 06/04/17 21:51 Active AMYLASE [CHEM] Stat Lab 06/04/17 21:51 Ordered CBC WITH ELECTRONIC DIFF [HEME] Stat Lab 06/04/17 21:51 Ordered COMPREHENSIVE METABOLIC PANEL [CHEM] Stat Lab 06/04/17 21:51 Ordered LIPASE [CHEM] Stat Lab 06/04/17 21:[address] W/POSS RFLX CULT [URINALYSIS] Stat Lab 06/04/17 21:51 Uncollected Result Diagrams: 06/04/17 22:00 06/04/17 22:00 - XRAY 1 XRAY Study: Chest, Abdomen XRAY Interpretation: large stool, no obstruction or free air Departure - Departure Date of Disposition Decision: 06/05/17 Time of Disposition Decision: 00:03 DIAGNOSIS: Intractable nausea and vomiting Qualifiers: Vomiting type: unspecified Qualified Code(s): R11.2 - Nausea with vomiting, unspecified Uncontrolled diabetes mellitus Qualifiers: Diabetes mellitus type: type 2 Diabetes mellitus complication status: with unspecified complications Diabetes mellitus residential insulin use: unspecified long term care social worker insulin use status Qualified Code(s): E11.8 - Type 2 diabetes mellitus with unspecified complications; E11.65 - Type 2 diabetes mellitus with hyperglycemia Disposition: ADMITTED INPATIENT 09 Certified Medical Emergency: Emergent Condition: Stable Referrals and Follow-Ups: eDep Cruz MD [Primary Care Provider] - - Critical Care Note This patient required my direct & personal management of CC.: Yes This chart was documented by the indicated scribe, (Geno Villarreal Scribe) and accurately reflects the services I performed and decisions made by me, Grupo Akers MD, as attested by the provider's signature.
[2017-06-04 22:23] LABS: BE -1.8 mmoll (-3.0-3.0); METHB 0.9 % (0.0-1.5); O2(CT) 15.4 mL/dL (15.0-23.0); PCO2(98.6) 39 mmHg (35-45); SAMPLE BLOOD; SAO2 81.2 % (95.0-100.0); pH(98.6) 7.38 (7.35-7.45)
[2017-06-04 22:24] LABS: AGAP 20; ALBUMIN 4.6 g/dL (3.5-5.0); ALKALINE PHOSPHATASE 251 U/L (32-104); AMYLASE 59 U/L (20-200); BUN 10 mg/dL (8-22); CALCIUM 10.2 mg/dL (8.8-10.2); CHLORIDE 94 mmol/L (98-107); COSMO 285; GOT 14 U/L (10-30); GPT 15 U/L (10-36); LIPASE 16 U/L (13-60); SODIUM 137 mmol/L (136-145); TCO2 23 mmol/L (25-35); TOTAL PROTEIN 8.9 g/dL (6.3-8.3)
[2017-06-04 22:26] LABS: BLOOD TYPE MIXED ART/VENOUS
[2017-06-04 22:27] LABS: PO2(98.6) 40 mmHg (60-100)
[2017-06-04 22:28] LABS: ALLEN TEST YES; DRAW SITE R RADIAL; MODALITY ROOM AIR
[2017-06-04] MEDS ORDERED: ZOFRAN ONE (22:43)
[2017-06-04 23:14] LABS: BILIRUBIN URINE NEGATIVE (NEGATIVE); BLOOD URINE NEGATIVE (NEGATIVE); CLARITY CLEAR (CLEAR); COLOR YELLOW; LEUKOCYTES URINE 1+ (NEGATIVE); NITRITE URINE NEGATIVE (NEGATIVE); PROTEIN URINE NEGATIVE (NEGATIVE); SP GRAVITY URINE 1.015; UROBILINOGEN URINE NORMAL
[2017-06-04 23:15] LABS: URINE SOURCE CLEAN CATCH
[2017-06-04 23:16] LABS: URINE EPITHELIAL CELLS <10 /HPF (<10); URINE RBC <10 /HPF (<10); URINE WBC <10 /HPF (<10)
[2017-06-04 23:17] LABS: URINE CULTURE PL NEEDED? YES
[2017-06-05] MEDS ORDERED: NS 2,000 ML IV ONE (00:45)
[2017-06-05] MEDS ORDERED: HUMULIN R (PARKWAY) SUBQ PRN (00:48)
[2017-06-05] MEDS ORDERED: HUMULIN R IV ONE (00:52)
[2017-06-05] MEDS ORDERED: DILAUDID IV ONE (02:27)
[2017-06-05] MEDS ORDERED: ULTRAM PO PRN (02:49)
[2017-06-05] MEDS: ZOFRAN IV PRN ×3 (07:02→20:50)
[2017-06-05] MEDS: REGLAN PO SCH ×5 (08:08→21:21)
[2017-06-05] MEDS: HUMALOG DOSE (PARKWAY) SUBQ SCH ×2 (10:09→13:36)
[2017-06-05] MEDS: NON-FORMULARY MED (Dapagliflozin Propanediol [Farxiga] 0 MG) PO SCH (10:23)
[2017-06-05] MEDS: PRINIVIL PO SCH (10:24)
[2017-06-05] MEDS: NEURONTIN PO SCH ×4 (10:24→17:58)
[2017-06-05] MEDS: NORVASC PO SCH (10:24)
[2017-06-05] MEDS: JANUVIA PO SCH (10:24)
--- NOTE | 2017-06-05 10:57 | Diag Imaging Result Doc PS360 ---
EXAM: FLAT/UPRIGHT ABD/1 VIEW CHEST INDICATION: nausea and vomiting TECHNIQUE: 4 views COMPARISON: Abdominal radiograph dated 05/31/2017 FINDINGS: There is proximal mild increased stool in the colon suggesting possible mild constipation. There is no obstructive bowel pattern. There is no evidence of large volume free abdominal gas. There is no evidence of organomegaly. The lungs are grossly clear. There is no discrete pleural fluid collection or pneumothorax. The cardiomediastinal silhouette and central vasculature are grossly unremarkable. IMPRESSION: Questionable mild constipation. Electronically signed by Ravindra Brush 06/05/2017 10:55 AM
[2017-06-05] MEDS ORDERED: ROCEPHIN 1 GM/NS 1 GM/50 ML IVPB IV SCH (13:00)
[2017-06-05] MEDS ORDERED: AUGMENTIN PO SCH (13:00)
[2017-06-05] MEDS ORDERED: CARAFATE PO SCH (13:00)
[2017-06-05] MEDS: CARAFATE LIQUID PO SCH ×2 (13:37→21:20)
[2017-06-05] MEDS ORDERED: NS 1,000 ML IV ONE (14:00)
--- NOTE | 2017-06-05 16:20 | EKG Report ---
Test Performed on : 06/05/2017 4:09:09 PM Test Reason : Chest pain Blood Pressure : / mmHG Vent. Rate : 099 BPM Atrial Rate : 099 BPM P-R Int : 126 ms QRS Dur : 070 ms QT Int : 360 ms P-R-T Axes : 061 023 033 degrees QTc Int : 462 ms Normal sinus rhythm. Possible Left atrial enlargement Borderline ECG When compared with ECG of 11-JAN-2013 04:25, No significant change was found Unconfirmed Result
[2017-06-05] MEDS ORDERED: G.I. COCKTAIL PO STA (16:31)
[2017-06-05] MEDS ORDERED: NITROGLYCERIN ONE (16:32)
[2017-06-05] MEDS ORDERED: NITROGLYCERIN SL PRN (16:37)
[2017-06-05] MEDS ORDERED: TORADOL IV ONE (17:08)
--- NOTE | 2017-06-05 17:09 | HISTORY AND PHYSICAL ---
CHIEF COMPLAINT: Abdominal pain, nausea, vomiting. HISTORY OF PRESENT ILLNESS: This is a 42-year-old female with a history of diabetic gastroparesis who is very well known to our service from multiple admissions for the same. She presented to the emergency room complaining of 1 week of generalized abdominal pain, nausea and vomiting. Of note she was discharged the hospital 2 days ago for the same complaints. At this time she had a Enterococcus UTI for which she was prescribed Augmentin - which she states she did not fill. She reports filling her Ultram and Farxiga only, which is consistent with her pharmacy history. Of note, she denies black or bloody stools or vomitus in interview, she reported vomiting blood to ER staff. She is being admitted for further evaluation and treatment. PAST MEDICAL HISTORY: 1. Diabetes mellitus noncompliant with an A1c of 11.3. 2. Gastroparesis. 3. Hypertension. 4. Noncompliance with medication and diet. PAST SURGICAL HISTORY: Hysterectomy and breast reduction. SOCIAL HISTORY: Denies alcohol, tobacco, or illicit drug use. ALLERGIES: No known drug allergies. HOME MEDICATIONS: A list will be obtained. REVIEW OF SYSTEMS: A 14 point review of systems is discussed with patient with pertinent positives being stated in the HPI. She denied chest pain, palpitations, dizziness, syncope, cough, fever, chills, diarrhea, constipation, hematuria, dysuria, frequency, urgency. PHYSICAL EXAMINATION: GENERAL: This is a 42-year-old female who is lying in the bed with no distress. VITAL SIGNS: Blood pressure is 155/72 with a heart rate of 100, respirations are 22, temperature is 97.7 degrees oral, room air saturation 100%. HEENT: Head is normocephalic, atraumatic. Pupils equal, round, react to light. EOMs are intact. Sclerae anicteric. Mucous membranes are moist. NECK: Supple. Trachea midline. CARDIOVASCULAR: Regular rate and rhythm, S1, S2 appreciated. No murmurs, rubs or gallops noted. PULMONARY: Breath sounds are clear with no increased work of breathing noted. Chest does rise and fall symmetric with respiration. GASTROINTESTINAL: Abdomen soft, nontender, nondistended. Bowel sounds in all 4 quadrants. BACK: No CVAT. No spine tenderness. MUSCULOSKELETAL: Good range of motion joints. NEUROLOGIC: She is alert, oriented x3 with cranial nerves 2-12 grossly intact. EXTREMITIES: No clubbing, cyanosis, or edema. Calves are nontender. Pulses are palpable x4. DIAGNOSTICS: WBC is 10.7 with a hemoglobin of 15.4, hematocrit 46.9 and platelets of 400,000. Sodium is 137, potassium 4, BUN 10, creatinine 0.7, glucose 313. Abdominal x- ray reveals questionable mild constipation. ASSESSMENT AND PLAN: 1. Nausea and vomiting - NPO, IV antiemetics 2. Insulin-dependent diabetes with a hemoglobin A1c of 11.3. 3. Diabetic gastroparesis. Reglan, Carafate. She will need GI evaluation this admission. 4. Hypertension. identify meds and continue as appropriate. 5. Medical noncompliance. 6. Recent Enterococcus faecalis urinary tract infection - She did not take Augmentin on DC will reculture urine and start Rocephin IV Once again I did speak with the patient about controlling her diabetes and the relation of her noncompliance, her high A1c interfering with the vagal nerve stimulation and her gastric emptying. The patient was not interested in discussing her health. She was not interested in discussing anything involving her having to alter her daily routine. Dictated by ALEXA Bocanegra for Tano Watts MD cc: ALEXA Bocanegra MD [facility]
[2017-06-05] MEDS ORDERED: LANTUS INSULIN (PARKWAY) SUBQ SCH ×2 (21:00)
[2017-06-05] MEDS: SODIUM CHLORIDE 0.9% INJ PRN (22:36)
[2017-06-05] MEDS: PHENERGAN IV PRN (22:36)
[2017-06-06] MEDS: CARAFATE LIQUID PO SCH ×2 (01:50→08:37)
[2017-06-06] MEDS: SODIUM CHLORIDE 0.9% INJ PRN ×2 (01:50→08:30)
[2017-06-06] MEDS: PHENERGAN IV PRN ×2 (01:50→08:30)
[2017-06-06 06:45] LABS: MCH 27.2 PG (27-31); MCHC 31.9 g/dL (33-37); MCV 85.1 FL (81-99); MPV 10.2 FL (7.4-10.4); RBC 5.52 XMIL (4.2-5.4)
[2017-06-06 07:19] LABS: AGAP 24; BUN 16 mg/dL (8-22); CALCIUM 9.5 mg/dL (8.8-10.2); CHLORIDE 104 mmol/L (98-107); COSMO 293; POTASSIUM 4.1 mmol/L (3.5-5.1); SODIUM 143 mmol/L (136-145); TCO2 15 mmol/L (25-35)
[2017-06-06] MEDS ORDERED: REGLAN PO SCH (07:38)
[2017-06-06] MEDS: NON-FORMULARY MED (Dapagliflozin Propanediol [Farxiga] 0 MG) PO SCH (08:37)
[2017-06-06] MEDS: NEURONTIN PO SCH ×2 (08:37→08:44)
[2017-06-06] MEDS: NORVASC PO SCH (08:38)
[2017-06-06] MEDS: PRINIVIL PO SCH (08:38)
[2017-06-06] MEDS: JANUVIA PO SCH (08:38)
[2017-06-06] MEDS ORDERED: NS 1,000 ML IV SCH ×2 (09:07→12:00)
[2017-06-06] MEDS ORDERED: DEMEROL IV PRN ×2 (10:20→11:54)
[2017-06-06] MEDS ORDERED: REGLAN IV SCH ×2 (10:45→17:00)
--- NOTE | 2017-06-06 11:11 | PROGRESS NOTE ---
DATE: 06/06/2017 SUBJECTIVE: The patient is lying with her head at the foot of the bed. She complains of nausea. She states that the Phenergan helps a little. OBJECTIVE: Vital Signs: Blood pressure is 177/90, with a heart rate of 100, respirations are 16, temperature is 98.8 degrees, room air saturations are 98-99%. Cardiovascular: Regular rate and rhythm. S1 and S2 are appreciated. Pulmonary: Breath sounds are clear with no increased work of breathing noted. Gastrointestinal: Abdomen is soft. She has epigastric tenderness, with bowel sounds in all 4 quadrants. Extremities: No clubbing, cyanosis, or edema. Calves are nontender. Pulses are palpable x4. Labs: WBC is 16.6, with a hemoglobin of 15, a hematocrit of 47, and platelets of 374,000. Sodium is 143, potassium 4.1, BUN 16, creatinine 0.6, with a glucose ranging 200-233. Urine culture revealed no growth. ASSESSMENT AND PLAN: 1. Nausea and vomiting. She has had no further vomiting since admission to the hospital. Nausea continues. We will continue with Phenergan. We will add Carafate. We will continue with Reglan with intravenous hydration and nothing per oral. 2. Insulin-dependent diabetes with a hemoglobin A1c of 11.3. Pattern blood glucose with sliding scale insulin. 3. Diabetic gastroparesis. We will continue Reglan. We will change this to intravenous. We will continue Carafate liquid. She will be transferred to [facility] for gastroenterology evaluation. 4. Hypertension. We will attempt to add oral medications. If she cannot tolerate these, we will have to change to intravenous coverage. 5. Medical noncompliance. 6. Recent Enterococcus faecalis urinary tract infection. Urine culture reveals no growth, although she did have this in the hospitalization within the week last week. We will continue with her Rocephin intravenously. 7. Abdominal pain. We will add Demerol intravenously. Dictated by ALEXA Bocanegra for Tano Watts MD cc: ALEXA Bocanegra MD
--- NOTE | 2017-06-06 11:41 | PROGRESS NOTE ---
DATE: 06/05/2017 The patient was found lying in the floor screaming, stating that he was having chest pain. When asked where her chest pain was, she did point epigastric up into her lower chest. She stated that he had the worst "really bad indigestion and burning. Once staff was in the room. She got up off of the floor, walked and got back in her bed. She would not interact and interview once I informed her that I could not give her anything for pain or do anything to help her until she answered my questions. She immediately stopped screaming and answered my questions in detail. Once I was through talking with her and turned to speak to the nurses about plan of care, she began to scream again. EKG was performed which revealed sinus rhythm with no ST -T changes. We did give a GI cocktail which within about 8-10 minute she stated did help her pain. She was given a sublingual nitroglycerin, which did not change her pain whatsoever. She was given IV Toradol which she stated relieved her pain. About an hour after given the Toradol, she asked the nurses what pain medicine she was given, and that when she was told that it was Toradol, she became upset and stated that her pain was back. I did attempt to speak to the patient about her gastroparesis and ways to help relieve her symptoms, and she stated she did not care to hear it at this time. She will be placed on telemetry. Dictated by ALEXA Bocanegra for Tano Watts MD cc: ALEXA Bocanegra MD [facility]
[2017-06-06] MEDS ORDERED: HUMULIN R SUBQ PRN (11:54)
[2017-06-06] MEDS ORDERED: NITROGLYCERIN SL PRN (11:56)
[2017-06-06] MEDS ORDERED: PHENERGAN IV PRN (11:58)
[2017-06-06] MEDS ORDERED: SODIUM CHLORIDE 0.9% INJ PRN (11:59)
[2017-06-06] MEDS ORDERED: ULTRAM PO PRN (12:00)
[2017-06-06] MEDS ORDERED: ZOFRAN IV PRN (12:00)
[2017-06-06 12:40] LABS: ALLEN TEST YES; BE -10.6 mmoll (-3.0-3.0); BLOOD TYPE ARTERIAL; DRAW SITE L RADIAL; MODALITY ROOM AIR; O2(CT) 20.7 mL/dL (15.0-23.0); PCO2(98.6) 33 mmHg (35-45); PO2(98.6) 102 mmHg (60-100); SAMPLE BLOOD; SAO2 98.5 % (95.0-100.0); THB 15.4 g/dL (11.5-17.4); pH(98.6) 7.27 (7.35-7.45)
[2017-06-06] MEDS ORDERED: NEURONTIN PO SCH (13:00)
--- NOTE | 2017-06-06 13:25 | Diag Imaging Result Doc PS360 ---
EXAM: FLAT/UPRIGHT ABD/1 VIEW CHEST INDICATION: dka TECHNIQUE: 3 views COMPARISON: 06/04/2017 FINDINGS: The questionable mild constipation seen previously has improved. There are unremarkable bowel gas and stool patterns on the current study. There is no obstructive bowel pattern. There is no evidence of large volume free abdominal gas. There is no evidence of organomegaly. The lungs are grossly clear. There is no discrete pleural fluid collection or pneumothorax. The cardiomediastinal silhouette and central vasculature are grossly unremarkable. IMPRESSION: Improvement of the questionable mild constipation seen previously. Essentially unremarkable, otherwise. Electronically signed by Ravindra Brush 06/06/2017 1:23 PM
[2017-06-06 13:31] LABS: AMYLASE 37 U/L (20-200); LIPASE 9 U/L (13-60)
[2017-06-06 13:42] LABS: AGAP 28; ALBUMIN 4.4 g/dL (3.5-5.0); ALKALINE PHOSPHATASE 217 U/L (32-104); BUN 18 mg/dL (8-22); CALCIUM 9.7 mg/dL (8.8-10.2); CHLORIDE 103 mmol/L (98-107); COSMO 298; GOT 14 U/L (10-30); GPT 10 U/L (10-36); MAGNESIUM 2.4 mg/dL (1.5-2.7); POTASSIUM 4.7 mmol/L (3.5-5.1); SODIUM 146 mmol/L (136-145); TCO2 15 mmol/L (25-35); TOTAL BILIRUBIN 0.48 mg/dL (0.20-1.00); TOTAL PROTEIN 8.8 g/dL (6.3-8.3)
[2017-06-06] MEDS ORDERED: ROCEPHIN 1 GM/NS 1 GM/50 ML IVPB IV SCH (14:00)
[2017-06-06 14:17] LABS: ACETONE SERUM MODERATE (NEGATIVE)
[2017-06-06 14:28] LABS: ACETAMINOPHEN < 1.2 ug/mL (10-30)
[2017-06-06] MEDS ORDERED: CARAFATE LIQUID PO SCH (15:00)
[2017-06-06] MEDS: NS 1,000 ML IV SCH ×3 (16:10→18:46)
[2017-06-06] MEDS ORDERED: SODIUM PHOSPHATE 30 MMOL in D5W 250 ML IV PRN (16:14)
[2017-06-06] MEDS ORDERED: HUMULIN R IV ONE (16:14)
[2017-06-06] MEDS ORDERED: HUMULIN R 100 UNIT in NS 99 ML IV SCH (16:14)
[2017-06-06] MEDS ORDERED: POTASSIUM CHLORIDE 40 MEQ/SWI 40 MEQ/100 ML IVPB IV PRN (16:14)
[2017-06-06] MEDS ORDERED: D50W SYRINGE IV PRN (16:14)
[2017-06-06] MEDS ORDERED: MAGNESIUM SULFATE 2 GM/S.W.I. 2 GM/50 ML IVPB IV PRN (16:14)
[2017-06-06 18:14] LABS: AGAP 24; BUN 19 mg/dL (8-22); CALCIUM 9.3 mg/dL (8.8-10.2); CHLORIDE 108 mmol/L (98-107); COSMO 302; POTASSIUM 4.5 mmol/L (3.5-5.1); SODIUM 149 mmol/L (136-145); TCO2 17 mmol/L (25-35)
[2017-06-06] MEDS ORDERED: LANTUS SUBQ SCH (21:00)
[2017-06-06] MEDS: ZOFRAN IV PRN (21:16)
[2017-06-06] MEDS ORDERED: ZOFRAN ODT PO ONE (21:33)
[2017-06-06] MEDS ORDERED: ZOFRAN ONE (21:55)
[2017-06-06] MEDS: D5 NS 1,000 ML IV SCH (22:52)
[2017-06-06 23:56] LABS: AGAP 24; BUN 16 mg/dL (8-22); CALCIUM 8.5 mg/dL (8.8-10.2); CHLORIDE 112 mmol/L (98-107); COSMO 294; POTASSIUM 4.8 mmol/L (3.5-5.1); SODIUM 147 mmol/L (136-145); TCO2 11 mmol/L (25-35)
[2017-06-07] MEDS: 1/2 NS 1,000 ML IV SCH ×4 (00:11→16:29)
[2017-06-07] MEDS: D5 NS 1,000 ML IV SCH ×2 (00:12→06:36)
[2017-06-07] MEDS: ZOFRAN IV PRN ×4 (00:57→21:42)
[2017-06-07 02:40] LABS: MAGNESIUM 2.2 mg/dL (1.5-2.7)
[2017-06-07 02:48] LABS: AGAP 16; BUN 14 mg/dL (8-22); CALCIUM 8.5 mg/dL (8.8-10.2); CHLORIDE 112 mmol/L (98-107); COSMO 294; POTASSIUM 3.7 mmol/L (3.5-5.1); SODIUM 146 mmol/L (136-145); TCO2 18 mmol/L (25-35)
[2017-06-07] MEDS ORDERED: SODIUM CHLORIDE 0.9% INJ PRN (03:49)
[2017-06-07] MEDS ORDERED: PHENERGAN IV PRN (03:49)
[2017-06-07 04:19] LABS: URINE SOURCE CLEAN CATCH
[2017-06-07 04:25] LABS: BILIRUBIN URINE NEGATIVE (NEGATIVE); BLOOD URINE TRACE (NEGATIVE); COLOR YELLOW; GLUCOSE URINE >1000 mg/dL (NEGATIVE); LEUKOCYTES URINE LARGE (NEGATIVE); NITRITE URINE NEGATIVE (NEGATIVE); PH URINE 5.5; PROTEIN URINE 30 mg/dL (NEGATIVE); SP GRAVITY URINE 1.029; TURBIDITY URINE HAZY (CLEAR); UROBILINOGEN URINE NORMAL (NORMAL)
[2017-06-07 04:26] LABS: URINE MICRO REVIEW NEEDED? YES
[2017-06-07 04:36] LABS: UR EPITHELIAL CELLS >10 /HPF (<10); URINE BACTERIA 1+ /HPF; URINE CULTURE NEEDED? YES; URINE RBC <10 /HPF (<10); URINE WBC TNTC /HPF (<10)
--- NOTE | 2017-06-07 05:41 | EKG Report ---
Test Performed on : 06/06/2017 12:49:36 PM Test Reason : dka Blood Pressure : / mmHG Vent. Rate : 119 BPM Atrial Rate : 119 BPM P-R Int : 118 ms QRS Dur : 080 ms QT Int : 352 ms P-R-T Axes : 061 028 059 degrees QTc Int : 495 ms Sinus tachycardia. Possible Left atrial enlargement Cannot rule out Anterior infarct , age undetermined Abnormal ECG When compared with ECG of 05-JUN-2017 16:09, (Unconfirmed) No significant change was found Confirmed by Katlyn Longoria MD ([id number]) on 06/08/2017 6:02:41 AM
[2017-06-07 05:53] LABS: MAGNESIUM 2.1 mg/dL (1.5-2.7)
[2017-06-07 05:56] LABS: AGAP 16; BUN 12 mg/dL (8-22); CALCIUM 8.7 mg/dL (8.8-10.2); CHLORIDE 109 mmol/L (98-107); COSMO 291; POTASSIUM 3.7 mmol/L (3.5-5.1); SODIUM 145 mmol/L (136-145); TCO2 20 mmol/L (25-35)
[2017-06-07 05:58] LABS: URINE CRYSTALS NONE SEEN
[2017-06-07 08:36] LABS: BASO% 0.1 % (0.0-0.8); EOS# 0.01 X1000 (0.0-0.7); EOS% 0.1 % (0.0-10.0); HEMATOCRIT 43.9 % (37.0-47.0); HEMOGLOBIN 13.9 g/dL (12.0-16.0); LYMPH# 2.06 X1000 (1.2-3.4); LYMPH% 11.7 % (20.5-51.1); MANUAL DIFF NEEDED? YES; MCH 28.1 PG (27-31); MCHC 31.7 g/dL (33-37); MCV 88.7 FL (81-99); MONO# 2.06 X1000 (0.11-0.59); MONO% 11.7 % (1.7-9.3); MPV 9.9 FL (7.4-10.4); NEUT% 76.4 % (42.2-75.2); PLT 370 X1000 (130-400); RBC 4.95 XMIL (4.2-5.4)
[2017-06-07] MEDS ORDERED: NORVASC PO SCH (09:00)
[2017-06-07] MEDS ORDERED: JANUVIA PO SCH (09:00)
[2017-06-07] MEDS ORDERED: PRINIVIL PO SCH (09:00)
[2017-06-07] MEDS ORDERED: NON-FORMULARY MED (Dapagliflozin Propanediol [Farxiga] 0 MG) PO SCH (09:00)
[2017-06-07] MEDS: D5 1/2 NS 1,000 ML IV SCH ×3 (09:04→23:29)
[2017-06-07 09:13] LABS: LYMPHS 10 % (21-51); MONO 14 % (1-9)
[2017-06-07] MEDS ORDERED: MISC. PHARMACY COMMUNICATION SCH (09:15)
[2017-06-07] MEDS: POTASSIUM CHLORIDE 20 MEQ/SWI 20 MEQ/100 ML IVPB IV PRN (09:33)
[2017-06-07 11:19] LABS: MAGNESIUM 2.3 mg/dL (1.5-2.7)
[2017-06-07 11:46] LABS: AGAP 20; BUN 10 mg/dL (8-22); CALCIUM 8.6 mg/dL (8.8-10.2); CHLORIDE 106 mmol/L (98-107); COSMO 290; POTASSIUM 3.4 mmol/L (3.5-5.1); SODIUM 145 mmol/L (136-145); TCO2 19 mmol/L (25-35)
[2017-06-07] MEDS: REGLAN IV SCH ×3 (13:13→23:28)
[2017-06-07 13:44] LABS: MAGNESIUM 2.1 mg/dL (1.5-2.7)
[2017-06-07 13:47] LABS: AGAP 13; BUN 8 mg/dL (8-22); CALCIUM 8.6 mg/dL (8.8-10.2); CHLORIDE 104 mmol/L (98-107); COSMO 284; POTASSIUM 3.2 mmol/L (3.5-5.1); SODIUM 142 mmol/L (136-145); TCO2 25 mmol/L (25-35)
[2017-06-07 13:56] LABS: ALLEN TEST YES; BLOOD TYPE ARTERIAL; DRAW SITE R RADIAL; METHB 1.4 % (0.0-1.5); MODALITY ROOM AIR; O2(CT) 18.6 mL/dL (15.0-23.0); PCO2(98.6) 40 mmHg (35-45); PO2(98.6) 67 mmHg (60-100); SAMPLE BLOOD; SAO2 96.4 % (95.0-100.0); THB 14.3 g/dL (11.5-17.4)
--- NOTE | 2017-06-07 16:36 | PROGRESS NOTE ---
DATE: 06/07/2017 SUBJECTIVE: This patient is still complaining of abdominal pain, nausea and vomiting. Today, we have started this patient on Reglan 5 mg IV q.6 hours; she has gastroparesis and this will help. She had diabetes ketoacidosis. She is still on insulin drip and fluids. For now, I will keep these treatment running, because this patient is nauseated and vomiting, and has abdominal pain. Once she is able to tolerate a diet, we will stop the drip and we will put this patient on long- acting insulin and short-acting insulin as well. Her potassium is low; we will replace it. OBJECTIVE: Vital Signs: Temperature 98.7 degrees, pulse 107, respiratory rate 16, blood pressure 169/93, oxygen saturation 99 on room air. HEENT: Head normocephalic. No trauma. PERRLA. Neck: Supple. No JVD. No masses. Central trachea. Chest: Clear to auscultation. No wheezing. No rales. Cardiovascular: RRR. Tachycardic. Abdomen: Soft, generalized tenderness to palpation. No signs of peritoneal irritation. Positive bowel sounds. Extremities: No edema. No clubbing. No cyanosis. Neurological: The patient is alert and oriented x3. No focal deficits. LABORATORY: WBC 17.6, hemoglobin 13.9, hematocrit 43.9, platelets 370,000. Sodium 142, potassium 3.2, chloride 104, bicarbonate 25, BUN 8, creatinine 0.6, glucose 147, calcium 8.6, phosphorus 1.3, magnesium 2.1. ASSESSMENT AND PLAN: 1. Diabetic ketoacidosis, resolved, but I will continue with the insulin drip and fluids. This patient is not tolerating p.o., so I cannot restart this patient on long-acting insulin. She is still nauseated and vomiting. 2. Nausea and vomiting. As above, we started this patient on Reglan IV q.6h hours, because she has been having gastroparesis. We will monitor. Gastroenterology is on board. 3. Uncontrolled diabetes, hemoglobin A1c is 11.3, continue with insulin drip. 4. Diabetic gastroparesis. As above. 5. Hypertension. Continue to monitor. Blood pressure is stable. 6. Medical noncompliance. I will continue with daily education. 7. Recent enterococcal faecalis urinary tract infection. We will continue to monitor the urinalysis which has been negative as well as the blood cultures and urine culture. She has been placed on antibiotics IV. 8. Abdominal pain. Continue with the same management. Probably this is related with her gastroparesis, let's see how she does with the Reglan. cc: Long Dowling MD
[2017-06-07 19:00] LABS: AGAP 15; BUN 8 mg/dL (8-22); CALCIUM 8.6 mg/dL (8.8-10.2); CHLORIDE 103 mmol/L (98-107); COSMO 284; POTASSIUM 3.2 mmol/L (3.5-5.1); SODIUM 142 mmol/L (136-145); TCO2 24 mmol/L (25-35)
--- NOTE | 2017-06-07 20:42 | CONSULTATION ---
DATE OF CONSULTATION: 06/07/2017 REASON FOR CONSULTATION: Abdominal pain, nausea and vomiting. HISTORY OF PRESENT ILLNESS: This is a 42-year-old, female, who reports abdominal pain, nausea and vomiting over the last week. She has been seen by Dr. Hutchinson in the past. She presented to the emergency room. She had recently been in the hospital for the same complaint. At that time, she was diagnosed with enterococcus urinary tract infection. She was treated with antibiotics. She was sent home with antibiotic prescription but apparently she did not take it. From her records, she is noncompliant with some of her treatment. She is currently on insulin drip for DKA. She denies any visible blood in the stool or black stools. PAST MEDICAL HISTORY: Diabetes. Gastroparesis. Hypertension. PAST SURGICAL HISTORY: Hysterectomy. Breast reduction. ALLERGIES: No known drug allergies. HOME MEDICATIONS: Farxiga 10 mg daily. Tramadol 50 mg as needed. Lisinopril/ hydrochlorothiazide 10/12.5 daily. Humalog 30 units subcutaneous 3 times daily. Lantus 20 units subcutaneous every night. Neurontin 800 mg 3 times a day. Norvasc 10 mg daily. Reglan 5 mg a.c. and at bedtime. SOCIAL HISTORY: No reported alcohol or tobacco use. REVIEW OF SYSTEMS: Per HPI. PHYSICAL EXAMINATION: Vital Signs: Temperature 98.7 degrees, pulse 107, respirations 16, blood pressure 169/93. General: Patient is awake and alert. She is complaining of abdominal pain and nausea. She does have an emesis basin at the bedside. HEENT: Normocephalic, atraumatic. Pupils equal, round, reactive to light. Sclerae nonicteric. Cardiovascular: Regular rate and rhythm. Pulmonary: Respiratory rate regular. Lung sounds clear bilaterally. Abdomen: Soft, nontender. Positive bowel sounds. Musculoskeletal: No lower extremity edema noted. DIAGNOSTIC AND LABORATORY DATA: Hematology: White count 17.66, hemoglobin 13.9 , hematocrit 43.9, MCV 88.7, platelet 370,000. Chemistry: Sodium 142, potassium 3.2, chloride 104, CO2 of 25, BUN 8, creatinine 0.6, total bilirubin 0.48, AST 14, ALT 10, alkaline phosphatase 217. Urinalysis shows 30 protein. Greater than 1000 glucose. Ketones 100. Trace amount of blood. Large amount of leukocytes and WBC. ASSESSMENT: 1. Diabetic ketoacidosis, resolving. 2. Nausea and vomiting. 3. Diabetic gastroparesis. 4. Abdominal pain. 5. Recent urinary tract infection, being treated. PLAN: Continue supportive care and symptomatic treatment. We will start Reglan every 6 hours IV since she is having nausea and vomiting. We will continue to follow. Dr. Hutchinson will be back on Wednesday and will roll picker care. Further plans will be made according to her progress. Thank you for this consultation. I have discussed this case with Dr. Pollard. Dictated by ALEXA Palencia for Chandler Pollard MD cc: ALEXA Kurtz MD [facility]
[2017-06-07 21:21] LABS: AGAP 12; BUN 7 mg/dL (8-22); CALCIUM 8.3 mg/dL (8.8-10.2); CHLORIDE 107 mmol/L (98-107); COSMO 289; POTASSIUM 3.3 mmol/L (3.5-5.1); SODIUM 145 mmol/L (136-145); TCO2 26 mmol/L (25-35)
[2017-06-07] MEDS ORDERED: POTASSIUM CHLORIDE 20 MEQ/SWI 20 MEQ/100 ML IVPB IV PRN (22:30)
[2017-06-08] MEDS: 1/2 NS 1,000 ML IV SCH ×2 (01:14→10:56)
[2017-06-08] MEDS: REGLAN IV SCH ×5 (01:14→23:32)
[2017-06-08] MEDS: ZOFRAN IV PRN ×5 (01:19→18:47)
[2017-06-08 01:42] LABS: MAGNESIUM 1.9 mg/dL (1.5-2.7)
[2017-06-08 01:46] LABS: AGAP 11; BUN 6 mg/dL (8-22); CALCIUM 8.3 mg/dL (8.8-10.2); CHLORIDE 105 mmol/L (98-107); COSMO 283; POTASSIUM 3.4 mmol/L (3.5-5.1); SODIUM 142 mmol/L (136-145); TCO2 26 mmol/L (25-35)
[2017-06-08] MEDS ORDERED: SODIUM CHLORIDE 0.9% INJ ONE (02:08)
[2017-06-08] MEDS ORDERED: PHENERGAN IV ONE (02:08)
[2017-06-08] MEDS: POTASSIUM CHLORIDE 20 MEQ/SWI 20 MEQ/100 ML IVPB IV PRN (02:36)
[2017-06-08 05:32] LABS: AGAP 12; BUN 6 mg/dL (8-22); CALCIUM 8.2 mg/dL (8.8-10.2); CHLORIDE 102 mmol/L (98-107); COSMO 281; POTASSIUM 3.1 mmol/L (3.5-5.1); SODIUM 141 mmol/L (136-145); TCO2 27 mmol/L (25-35)
[2017-06-08] MEDS ORDERED: SODIUM PHOSPHATE 30 MMOL in NS 250 ML IV ONE (08:32)
[2017-06-08] MEDS ORDERED: POTASSIUM CHLORIDE 40 MEQ/SWI 40 MEQ/100 ML IVPB IV ONE (08:40)
[2017-06-08 08:50] LABS: MANUAL DIFF NEEDED? NO
[2017-06-08 08:57] LABS: BASO% 0.2 % (0.0-0.8); EOS# 0.03 X1000 (0.0-0.7); EOS% 0.2 % (0.0-10.0); HEMATOCRIT 42.6 % (37.0-47.0); HEMOGLOBIN 13.9 g/dL (12.0-16.0); IMM GRAN# 0.04 X1000 (0.0-0.04); IMM GRAN% 0.3 % (0.0-0.5); LYMPH# 3.15 X1000 (1.2-3.4); LYMPH% 24.8 % (20.5-51.1); MCH 27.9 PG (27-31); MCHC 32.6 g/dL (33-37); MCV 85.4 FL (81-99); MONO# 1.57 X1000 (0.11-0.59); MONO% 12.4 % (1.7-9.3); MPV 9.2 FL (7.4-10.4); NEUT% 62.1 % (42.2-75.2); PLT 340 X1000 (130-400); RBC 4.99 XMIL (4.2-5.4)
[2017-06-08] MEDS: NEUTRA-PHOS PO SCH ×3 (09:15→16:11)
[2017-06-08] MEDS: NS 1,000 ML IV SCH ×2 (09:15→21:48)
--- NOTE | 2017-06-08 09:20 | PROGRESS NOTE ---
DATE: 06/08/2017 SUBJECTIVE: Patient reports still nauseated last night but she wants to try some liquids and see how she does. No abdominal pain this morning. OBJECTIVE: Vital Signs: Temperature 98.4 degrees, heart rate 102, respiratory rate 18, blood pressure 131/98, 99% on room air. General Examination: This is a 42-year-old, female lying in bed, in no acute distress. HEENT: Head is normocephalic and atraumatic. Anicteric sclerae and pale conjunctivae. Mucous membranes moist. Neck: Supple. No JVD noted. No carotid bruits. No lymphadenopathy. No thyromegaly. Cardiovascular Examination: S1 and S2 heard. No murmurs, gallops, or rubs. Regular rate and rhythm. Respiratory Examination: Clear bilaterally to auscultation. No work of breathing or using accessory muscles. Abdomen: Soft. A little bit distended. Generalized tenderness to palpation but there are no signs of peritoneal irritation. Extremities: No clubbing, cyanosis, or edema. Peripheral pulses in both legs. Neurological Examination: Patient is alert and oriented x3. Moves 4 extremities. Laboratory Data: The BMP shows potassium 3.1 with anion gap of 12 and creatinine 0.5, BUN 6, glucose 142. Phosphorus 1.7. ASSESSMENT/PLAN: 1. Diabetic ketoacidosis. That condition has completely resolved. Patient is not longer on any insulin drip. We are going to restart home doses of Lantus and sliding scale insulin, and a clear liquid diet, and we will see how she does. 2. Nausea and vomiting. That condition is a little bit better today. We are going to continue with Reglan intravenous every 6 hours that she was given for gastroparesis. 3. Uncontrolled diabetes. Hemoglobin A1c 7.3. We will continue with home medications. 4. Diabetic gastroparesis. Patient is receiving Reglan as we mentioned above. 5. Hypertension. Blood pressure is under control. We will continue with the same management. 6. Recent Enterococcus faecalis urinary tract infection. Patient is not on any antibiotics here. Urine culture is negative. We are not going to start any antibiotics at this time. 7. Abdominal pain, probably related to gastroparesis. At this point, the patient reports feeling better. cc: Josse Banuelos MD
[2017-06-08 10:25] LABS: HEMOGLOBIN A1C 10.3 % (4.8-6.0)
[2017-06-08] MEDS ORDERED: INSULIN PEN NEEDLES ONE (10:54)
[2017-06-08] MEDS: LANTUS SUBQ SCH (10:55)
[2017-06-08] MEDS: POTASSIUM CHLORIDE 20 MEQ/SWI 20 MEQ/100 ML IVPB IV SCH ×2 (10:55→12:30)
[2017-06-08] MEDS: D5 1/2 NS 1,000 ML IV SCH (10:56)
[2017-06-08] MEDS: HUMALOG SUBQ SCH ×3 (11:05→21:48)
--- NOTE | 2017-06-08 13:05 | PROGRESS NOTE ---
DATE: 06/08/2017 SUBJECTIVE: She still reports nausea. She had a small amount of vomiting this morning. She reports it was clear. Her abdominal pain is slightly improved. Reglan was started yesterday IV every 6 hours for gastroparesis. OBJECTIVE: Vital signs: Temperature 98.8 degrees, pulse 98, respirations 10, blood pressure 146/81. Generally: Patient is awake, alert, no acute distress. HEENT: Normocephalic, atraumatic. Pupils equal, round, reactive to light. Sclerae nonicteric. Abdomen: Is soft. Some mild tenderness with palpation. LABORATORY: Hematology: White count 12.71, hemoglobin 13.9, hematocrit 42.6, MCV 85.4, platelet 340,000. Chemistry: Sodium 141, potassium 3.1, chloride 102, CO2 27, BUN 6, creatinine 0.5, glucose 142. ASSESSMENT AND PLAN: 1. Nausea, vomiting. 2. Diabetic ketoacidosis resolved. Her insulin drip has been discontinued and she is restarted on her home insulin. 3. Gastroparesis. Continue Reglan IV q.6. 4. Recent urinary tract infection. PLAN: Continue symptomatic treatment. Continue IV fluids. Continue Reglan IV every 6 hours. Symptoms are slowly improving. Dr. Hutchinson will return tomorrow and resume care. Further plans to be made by her. I have discussed this case with Dr. Pollard. Dictated by ALEXA Palencia for Chandler Pollard MD cc: ALEXA Kurtz MD
[2017-06-08] MEDS ORDERED: MYLICON DROPS PO PRN (14:47)
[2017-06-08] MEDS ORDERED: BLISTEX MEDICATED BERRY LIP BALM TOP ONE (15:48)
[2017-06-09] MEDS: REGLAN IV SCH ×3 (00:35→14:46)
[2017-06-09 06:42] LABS: MANUAL DIFF NEEDED? NO
[2017-06-09 06:56] LABS: BASO% 0.4 % (0.0-0.8); EOS# 0.11 X1000 (0.0-0.7); HEMATOCRIT 41.3 % (37.0-47.0); HEMOGLOBIN 13.6 g/dL (12.0-16.0); IMM GRAN# 0.03 X1000 (0.0-0.04); IMM GRAN% 0.3 % (0.0-0.5); LYMPH# 4.11 X1000 (1.2-3.4); LYMPH% 36.9 % (20.5-51.1); MCH 27.9 PG (27-31); MCHC 32.9 g/dL (33-37); MCV 84.8 FL (81-99); MONO# 1.19 X1000 (0.11-0.59); MONO% 10.7 % (1.7-9.3); MPV 9.3 FL (7.4-10.4); NEUT% 50.7 % (42.2-75.2); PLT 320 X1000 (130-400); RBC 4.87 XMIL (4.2-5.4)
[2017-06-09 07:57] LABS: AGAP 13; BUN 7 mg/dL (8-22); CALCIUM 8.3 mg/dL (8.8-10.2); CHLORIDE 98 mmol/L (98-107); COSMO 279; POTASSIUM 3.3 mmol/L (3.5-5.1); SODIUM 140 mmol/L (136-145); TCO2 29 mmol/L (25-35)
[2017-06-09] MEDS ORDERED: INSULIN PEN NEEDLES ONE (08:52)
[2017-06-09] MEDS: HUMALOG SUBQ SCH ×4 (08:56→20:18)
[2017-06-09] MEDS: NEUTRA-PHOS PO SCH ×3 (08:57→19:13)
[2017-06-09] MEDS: DIFLUCAN PO SCH (08:57)
[2017-06-09] MEDS: LANTUS SUBQ SCH (08:57)
[2017-06-09] MEDS: ZOFRAN IV PRN ×2 (09:15→12:42)
[2017-06-09] MEDS ORDERED: KLOR-CON PO ONE (09:40)
[2017-06-09] MEDS: NS 1,000 ML IV SCH ×3 (11:29→20:12)
--- NOTE | 2017-06-09 11:51 | PROGRESS NOTE ---
DATE: 06/09/2017 SUBJECTIVE: Patient reports nausea is fine. It is almost gone but she reports odynophagia. OBJECTIVE: Vital Signs: Temperature 98.3 degrees, heart rate 93, respiratory rate 12, blood pressure 147/90, O2 saturation 99% on room air. General Examination: This is a 42-year-old, female lying in bed, in no acute distress. HEENT: Head is normocephalic and atraumatic. Anicteric sclerae and pale conjunctivae. Mucous membranes are moist. Neck: Supple. No JVD noted. No carotid bruits. No lymphadenopathy. No thyromegaly. Cardiovascular Examination: S1 and S2 heard. No murmurs, gallops, or rubs. Regular rate and rhythm. Respiratory Examination: Clear bilaterally to auscultation. No work of breathing or using accessory muscles. Abdomen: Soft, nontender to palpation. Bowel sounds present. No organomegaly. Extremities: No clubbing, cyanosis, or edema. Peripheral pulses present in both legs. Neurological Examination: Patient is alert and oriented x3. Moves 4 extremities. Cranial nerves 2-12 are grossly normal. Laboratory Data: Reviewed. ASSESSMENT AND PLAN: 1. Diabetic ketoacidosis. That condition is completely resolved. Patient is on home medication and tolerated diet very well with sugars well controlled as well. 2. Nausea and vomiting, resolved. That condition is probably related to diabetic gastroparesis which is fine. 3. Uncontrolled diabetes mellitus. We will continue with home medications. 4. Hypertension. Blood pressure is under control that ranged between 166-147. She is on home medications for blood pressure. 5. Severe odynophagia. At this point, we are going to consult gastroenterology to see what else we can do for this patient. For suspicion for possible candidiasis, she has received 1 dose of fluconazole 150. At this point, we have requested evaluation by her primary gastroenterology, Dr. Hutchinson. We will see what she has to say. cc: Josse Banuelos MD
--- NOTE | 2017-06-09 23:02 | PROGRESS NOTE ---
DATE: 06/09/2017 SUBJECTIVE: The patient is a 42-year-old, female who has been followed in our clinic for chronic constipation. She now reports nausea with vomiting, diarrhea, and abdominal pain. She also notes new odynophagia. We are asked to perform endoscopic evaluation given her refractory symptoms. RECOMMENDATION: I discussed endoscopy versus clinical management with the patient. She is very concerned about the cause of her persistent symptoms. Therefore, we will place the patient on the schedule for an EGD with small bowel biopsies. Once we have cleared the upper GI tract, if there are no findings to explain her symptoms, I will schedule her for colonoscopy. She is doubtful as am I that she would be able to tolerate the bowel prep at this time. Consent was discussed and the procedure was ordered. cc: MD Deep Hannah MD Cesar Garcia-Rodriguez, MD
[2017-06-10] MEDS: NS 1,000 ML IV SCH ×2 (00:46→19:16)
[2017-06-10] MEDS: REGLAN IV SCH ×4 (00:47→16:20)
[2017-06-10] MEDS: ZOFRAN IV PRN (06:41)
[2017-06-10] MEDS: HUMALOG SUBQ SCH ×4 (06:45→22:03)
[2017-06-10 06:52] LABS: MANUAL DIFF NEEDED? NO
[2017-06-10 06:58] LABS: BASO% 0.2 % (0.0-0.8); EOS# 0.28 X1000 (0.0-0.7); EOS% 2.2 % (0.0-10.0); HEMATOCRIT 41.9 % (37.0-47.0); HEMOGLOBIN 13.7 g/dL (12.0-16.0); IMM GRAN# 0.05 X1000 (0.0-0.04); IMM GRAN% 0.4 % (0.0-0.5); LYMPH# 4.84 X1000 (1.2-3.4); LYMPH% 37.9 % (20.5-51.1); MCH 27.8 PG (27-31); MCHC 32.7 g/dL (33-37); MONO% 9.4 % (1.7-9.3); MPV 9.4 FL (7.4-10.4); NEUT% 49.9 % (42.2-75.2); PLT 386 X1000 (130-400); RBC 4.93 XMIL (4.2-5.4)
[2017-06-10 07:07] LABS: AGAP 14; BUN 5 mg/dL (8-22); CALCIUM 8.8 mg/dL (8.8-10.2); CHLORIDE 97 mmol/L (98-107); COSMO 282; POTASSIUM 3.1 mmol/L (3.5-5.1); SODIUM 141 mmol/L (136-145); TCO2 30 mmol/L (25-35)
[2017-06-10] MEDS: POTASSIUM CHLORIDE 20 MEQ/SWI 20 MEQ/100 ML IVPB IV SCH ×2 (12:10→14:50)
--- NOTE | 2017-06-10 14:17 | PROGRESS NOTE ---
DATE: 06/10/2017 SUBJECTIVE: Patient reports feeling fine. She is not nauseated anymore at least since yesterday when she ingested her last meal. She was still noticing some odynophagia. OBJECTIVE: Vitals: Temperature 98.2 degrees, heart rate 94, respiratory 14, blood pressure 118/71, O2 saturation 98% on room air. General Examination: This is a 42-year-old female lying in bed, in no acute distress. HEENT: Head is normocephalic, atraumatic. Anicteric sclerae and pale conjunctivae. Mucous membranes moist. Neck: Supple. No JVD. No carotid bruits. No lymphadenopathy. No thyromegaly. Cardiovascular: S1, S2 heard. No murmurs, gallops, or rubs. Regular rate and rhythm. Respiratory: Clear bilaterally to auscultation. No work of breathing or using accessory muscles. Abdomen: Soft, nontender to palpation. Bowel sounds present. No organomegaly. Extremities: No clubbing, cyanosis, or edema. Peripheral pulses present in both legs. Neurological: Patient alert and oriented x3. Able to move 4 extremities. Cranial nerves 2-12 grossly normal. LABORATORY DATA: Reviewed. ASSESSMENT AND PLAN: 1. Diabetic ketoacidosis. Completely resolved. 2. Nausea and vomiting. Resolved. 3. Hypertension. Blood pressure is in the range of 117 to 120 most of the time. We will continue with the same management. 4. Severe odynophagia. Dr. Hutchinson has been consulted for this problem. Help appreciated. Patient has been scheduled for EGD, possible colonoscopy too. We will see what that exam shows. If that exam is completely she can be discharged. cc: Josse Banuelos MD
[2017-06-10] MEDS ORDERED: DIPRIVAN 1% ONE ×2 (15:04→18:08)
[2017-06-10] MEDS: DIFLUCAN PO SCH (17:22)
[2017-06-10] MEDS: LANTUS SUBQ SCH (17:31)
[2017-06-10] MEDS ORDERED: FENTANYL ONE (17:53)
[2017-06-10] MEDS: CARAFATE LIQUID PO SCH (22:02)
[2017-06-10] MEDS: PRILOSEC ORAL SUSPENSION PO SCH (22:03)
[2017-06-11] MEDS: CARAFATE LIQUID PO SCH ×4 (03:40→21:53)
[2017-06-11] MEDS: NS 1,000 ML IV SCH ×2 (03:40→17:34)
[2017-06-11] MEDS: HUMALOG SUBQ SCH ×4 (06:06→21:54)
[2017-06-11 06:36] LABS: MANUAL DIFF NEEDED? NO
[2017-06-11 06:41] LABS: BASO% 0.3 % (0.0-0.8); EOS# 0.34 X1000 (0.0-0.7); EOS% 2.3 % (0.0-10.0); HEMATOCRIT 36.7 % (37.0-47.0); HEMOGLOBIN 11.9 g/dL (12.0-16.0); IMM GRAN# 0.03 X1000 (0.0-0.04); IMM GRAN% 0.2 % (0.0-0.5); LYMPH# 3.18 X1000 (1.2-3.4); LYMPH% 21.3 % (20.5-51.1); MCH 27.8 PG (27-31); MCHC 32.4 g/dL (33-37); MCV 85.7 FL (81-99); MONO# 1.19 X1000 (0.11-0.59); MPV 9.2 FL (7.4-10.4); NEUT% 67.9 % (42.2-75.2); PLT 354 X1000 (130-400); RBC 4.28 XMIL (4.2-5.4)
[2017-06-11 07:02] LABS: AGAP 10; BUN 4 mg/dL (8-22); CALCIUM 8.8 mg/dL (8.8-10.2); CHLORIDE 98 mmol/L (98-107); COSMO 279; POTASSIUM 3.2 mmol/L (3.5-5.1); SODIUM 139 mmol/L (136-145); TCO2 31 mmol/L (25-35)
[2017-06-11] MEDS ORDERED: KLOR-CON PO ONE ×2 (12:10→17:19)
--- NOTE | 2017-06-11 14:41 | PROGRESS NOTE ---
DATE: 06/11/2017 SUBJECTIVE: Patient report having some odynophagia. No fever, chills reported. OBJECTIVE: Vital Signs: Temperature 98.2 degrees, heart rate 97, respiratory 15, blood pressure 120/70, O2 saturation 98% on room air. General Examination: This is a 42-year-old female lying in bed in no acute distress. HEENT: Head is normocephalic, atraumatic. Anicteric sclerae and pale conjunctivae. Mucous membranes moist. Neck: Supple. No JVD noted. No carotid bruits. No lymphadenopathy. No thyromegaly. Cardiovascular: S1, S2 heard. No murmurs, gallops, or rubs. Regular rate and rhythm. Respiratory: Clear bilaterally to auscultation. No work of breathing or using accessory muscles. Abdomen: Soft, nontender to palpation. Bowel sounds present. No organomegaly. Extremities: No clubbing, cyanosis, or edema. Peripheral pulses present in both legs. Neurological: Patient alert oriented x3. Moves 4 extremities. Cranial nerves 2-12 grossly normal. LABORATORY: Data reviewed. ASSESSMENT AND PLAN: 1. Diabetic ketoacidosis resolved. 2. Nausea and vomiting resolved. 3. Hypertension, blood pressure is under control. 4. Severe odynophagia, Dr. Hutchinson from gastrointestinal has performed EGD which verbally reported she had severe esophagitis and gastritis. We are suspecting diabetic gastroparesis considering her poor control diabetes. Gastric emptying study has been scheduled for today. Will see what that exam shows and in any case we prefer to start this patient on Reglan and will go from there. cc: Josse Banuelos MD
--- NOTE | 2017-06-11 15:03 | Diag Imaging Result Doc PS360 ---
EXAM: GASTRIC EMPTYING - 06/11/2017 HISTORY: nausea with vomiting TECHNIQUE: Exam performed using 530 uCi technetium 99m sulfur colloid administered by mouth in egg. COMPARISON: None. FINDINGS: The gastric emptying half-time is not reached to a time of 120 minutes following tracer administration. The estimated gastric imaging half-time based on the obtained data is 797 minutes. This is well beyond the normal range of 40 to 90 minutes for gastric imaging half-time. IMPRESSION: Very slow gastric emptying with estimated gastric imaging half-time of 797 minutes. The possibility of gastroparesis cannot be excluded. Electronically signed by Eros Bosch 06/11/2017 3:01 PM
[2017-06-11] MEDS: DIFLUCAN PO SCH (15:52)
[2017-06-11] MEDS: LANTUS SUBQ SCH (15:53)
[2017-06-11] MEDS ORDERED: REGLAN IV SCH (16:00)
[2017-06-11] MEDS: PRILOSEC ORAL SUSPENSION PO SCH ×2 (16:02→21:53)
--- NOTE | 2017-06-11 19:09 | PROGRESS NOTE ---
DATE: 06/11/2017 SUBJECTIVE: The patient underwent a gastric emptying study that reveals a gastric emptying time of 797 minutes. Reglan therapy was begun. Unfortunately, she reports diarrhea with fecal incontinence following her injection of IV Reglan. However, she is excited because the nausea with vomiting has stopped and she has been able to tolerate her diet. So far today, she has had more than 6 bowel movements after each dose or Reglan. She denies fevers, chills, headache, vision changes, and abdominal pain. OBJECTIVE DATA: Reveals a blood pressure of 123/75, pulse 92, respiration 14, temperature of 98.3 degrees. HEENT: Unremarkable. Pulmonary: Lungs are clear to auscultation with normal expiratory effort. Cardiovascular: Reveals regular rate and rhythm with no murmurs, gallops, or rubs. Abdominal Exam: Reveals normoactive bowel sounds. The abdomen is soft and nontender. OBJECTIVE DATA: Reveals a hemoglobin of 11.9 with hematocrit of 36.7, and a white count of 14.90. She has 354,000 platelets. Sodium is 139, potassium 3.2, chloride 98, CO2 31, BUN 4, creatinine 0.5 with a glucose of 176. Her calcium is 8.8, and phosphorus is 2.7. RECOMMENDATION: 1. The patient has severe gastroparesis but is having significant adverse reactions to the higher dose of Reglan. Therefore, I recommend a trial of Reglan 2.5 mg before meals and at bedtime. If this does continue to induce diarrhea, she may still need a dose once a day or twice a day of the Reglan 2.5 mg. She may need Erythromycin if this is not successful. 2. She continues to have a leukocytosis which is concerning and has a mild anemia. If she fails to improve with the dose reduction of the Reglan, it would be reasonable to perform an inpatient colonoscopy. However, I am recommending an outpatient colonoscopy in the absence of other symptoms. 3. Continue to advance her diet. 4. Her recurrent hypokalemia is worrisome. Please check a magnesium level again tomorrow to see if hypomagnesemia is contributing to her recurrent hypokalemia. 5. Continue the Carafate for a total of 12 weeks for the erosive esophagitis. 6. Continue omeprazole 40 mg b.i.d. for 6 weeks. As this can also cause diarrhea in some patients, if the interval dose reduction of Reglan is of limited benefit, I would reduce her dose of omeprazole to once daily. 7. She may benefit from the addition of a probiotic. I would refrain from initiating therapy until she is tolerating her diet. 8. Additional recommendations to follow based on her clinical course. cc: MD Deep Hannah MD Cesar Garcia-Rodriguez, MD MTDD
[2017-06-11] MEDS: REGLAN PO SCH (21:53)
--- NOTE | 2017-06-11 22:28 | OPERATIVE NOTE ---
PROCEDURE DATE: 06/10/2017 REFERRING PHYSICIAN: Josse Aldrich M.D. PRIMARY CARE PROVIDER: Deep Cruz M.D. INDICATION FOR PROCEDURE: 1. Nausea with vomiting. 2. Epigastric pain. 3. Dysphagia. 4. Odynophagia. PROCEDURE PERFORMED: 1. Esophagogastroduodenoscopy with biopsy. 2. Esophagogastroduodenoscopy with brushing. CONSENT: Informed consent was obtained from the patient prior to the procedure. The risks, benefits, and alternatives were discussed. MEDICATION: The patient received monitored anesthesia care. PERFORMING PHYSICIAN: Charisma Hutchinson M.D. ASSISTANTS: 1. [facility]. [facility] 2. Leona Sullivan RN. 3. Jose Bejarano CRNA. 4. Giuliano Garcia M.D. (anesthesia). COMPLICATIONS: There were no complications. ESTIMATED BLOOD LOSS: Less than 1-2 mL. SPECIMENS REMOVED: 1. Duodenal biopsy. 2. Gastric biopsy. 3. Esophageal brushings. FINDINGS: After sedation was achieved, the upper endoscope was inserted to the 3rd portion of the duodenum. The hypopharynx appeared endoscopically normal. In the tubular esophagus, there was grade D erosive esophagitis with the primary ulcers found between 28-35 cm with more than 75% of the luminal circumference was involved. The GE junction was measured at 35 cm from the incisors. There is a hiatal hernia that spanned from 35-40 cm. In the gastric lumen, there were over 200 mL of retained gastric secretions that were bilious consistent with gastric stasis or gastroparesis. Postevacuation there were severe erosive changes to the gastric mucosa with a fundal predominance. There were no masses or ulcers seen. There were no large polyps seen. The pylorus was inflamed but patent. There was duodenitis to the third portion of the duodenum. Biopsies were taken from the duodenal and gastric mucosa. Esophageal brushings were obtained. The lumen was then decompressed and the scope was removed without incident. IMPRESSION: 1. Grade D erosive esophagitis. 2. Hiatal hernia. 3. Gastric stasis. 4. Severe erosive gastritis with a fundal predominance. 5. Inflamed pylorus. 6. Duodenitis. RECOMMENDATION: 1. Await biopsy results. 2. Begin omeprazole 40 mg 1 p.o. b.i.d. for 6 weeks then reduce to once daily. 3. Begin Carafate suspension 1 g p.o. 4 times a day for 12 weeks. 4. Please hold the Reglan for the time being. I will check a dedicated gastric emptying study in the morning. 5. If the gastric emptying study is negative or her symptoms persists, I would recommend a dedicated colonoscopy. Right now, I doubt that she is able to tolerate the bowel prep. 6. We will resume her diet with soft foods in light of the severe erosive esophagitis. 7. Additional recommendations to follow based on her clinical course and the results of our endoscopic evaluation. cc: Deep Cruz MD MTDD
[2017-06-12] MEDS: CARAFATE LIQUID PO SCH ×2 (05:01→08:23)
[2017-06-12] MEDS: NS 1,000 ML IV SCH (06:02)
[2017-06-12 06:06] LABS: MANUAL DIFF NEEDED? NO
[2017-06-12 06:08] LABS: BASO% 0.3 % (0.0-0.8); EOS# 0.45 X1000 (0.0-0.7); EOS% 3.8 % (0.0-10.0); HEMATOCRIT 35.9 % (37.0-47.0); HEMOGLOBIN 11.7 g/dL (12.0-16.0); IMM GRAN# 0.05 X1000 (0.0-0.04); IMM GRAN% 0.4 % (0.0-0.5); LYMPH# 3.61 X1000 (1.2-3.4); LYMPH% 30.7 % (20.5-51.1); MCH 27.9 PG (27-31); MCHC 32.6 g/dL (33-37); MCV 85.5 FL (81-99); MONO# 1.15 X1000 (0.11-0.59); MONO% 9.8 % (1.7-9.3); MPV 9.3 FL (7.4-10.4); PLT 359 X1000 (130-400)
[2017-06-12 06:26] LABS: AGAP 11; BUN 4 mg/dL (8-22); CALCIUM 8.5 mg/dL (8.8-10.2); CHLORIDE 100 mmol/L (98-107); COSMO 286; POTASSIUM 3.7 mmol/L (3.5-5.1); SODIUM 143 mmol/L (136-145); TCO2 32 mmol/L (25-35)
[2017-06-12] MEDS: REGLAN PO SCH ×2 (06:46→12:05)
[2017-06-12] MEDS: HUMALOG SUBQ SCH ×2 (06:47→12:05)
[2017-06-12 07:21] VITALS: BP 139/70
[2017-06-12] MEDS: PRILOSEC ORAL SUSPENSION PO SCH (08:23)
[2017-06-12] MEDS: DIFLUCAN PO SCH (08:24)
[2017-06-12] MEDS: LANTUS SUBQ SCH (08:24)
--- NOTE | 2017-06-12 15:48 | DISCHARGE SUMMARY ---
ADMISSION DATE: 06/04/2017 DISCHARGE DATE: 06/12/2017 DISCHARGE DIAGNOSES: 1. Diabetic ketoacidosis. Completely resolved. 2. Intractable nausea and vomiting improved. 3. Moderate to severe diabetic gastroparesis, new diagnosis. 4. Poorly controlled diabetes mellitus type 1. 5. Hypertension. 6. Medical noncompliance. CONSULTATIONS: Dr. Charisma Hutchinson from GI. PROCEDURES: 1. Gastric emptying nuclear medicine showed very low gastric emptying with estimated gastric imaging time 797 minutes. 2. Upper endoscopy showed grade D erosive esophagitis, hiatal hernia, gastric stasis, severe erosive gastritis with a full predominance, inflamed hemorrhoids and duodenitis. HOSPITAL COURSE: This is a 52-year-old, obese female with a history of uncontrolled diabetes mellitus type 2 who is very well known to our service for multiple admissions for the same diagnosis. She presented to the emergency department complaining of 1 week of generalized abdominal pain, nausea and vomiting and she was discharged from the hospital 2 days ago for the same complaint. At that time, she was diagnosed with enterococcal UTI. Labs revealed severe DKA so patient was admitted to the hospital and started on aggressive fluid resuscitation and also insulin drip as well. The patient after 2 days, she improved a lot with less nausea and vomiting and also anion gap closed and glucose was much better controlled. But she started complaining of severe odynophagia. We were about to discharge her. We consulted her primary GI doctor, who performed an endoscopy with results as above. Now that gastroparesis has been confirmed GI has started her on Reglan 2.5 mg before each meal and also at bedtime. Patient reports feeling fine. The patient was explained about the adverse reactions from the Reglan. Patient is supposed to have followup with Dr. Hutchinson in 4 weeks. Patient is going to be discharged in stable condition. DISCHARGE PHYSICAL EXAMINATION: Vitals: Temperature 98.7, heart rate 97, respiratory rate 20, blood pressure 139/70, O2 saturation 95% on room air. General examination: This is a 42-year- old female lying in bed, in no acute distress. HEENT: Head is normocephalic, atraumatic. Anicteric sclerae and pale conjunctivae. Mucous membranes moist. Neck: Supple. No JVD noted. No carotid bruits. No lymphadenopathy. No thyromegaly. Cardiovascular exam: S1, S2 heard. No murmurs, gallops, or rubs. Regular rate and rhythm. Respiratory : Clear bilaterally to auscultation. No work of breathing or using accessory muscles. Abdomen: Soft, nontender to palpation. Bowel sounds present. No organomegaly. Extremities: No clubbing, cyanosis, or edema. Peripheral pulses present in both legs. Neurological: Patient is alert and oriented x3. Moves 4 extremities. Cranial nerves 2-12 grossly normal. DISCHARGE DISPOSITION: To home to self-care. FOLLOWUP: With Dr. Hutchinson in 4 weeks and with primary care physician, Dr. Adame in 1 week. LIST OF MEDICATIONS: 1. Sucralfate 1 g p.o. q.6 hours for 4 weeks. 2. Humalog 30 units subcutaneously 3 times per day before meals. 3. Lisinopril 10/hydrochlorothiazide 12.5, 1 tablet p.o. daily. 4. Gabapentin 800 mg p.o. 3 times per day. 5. Amlodipine 10 mg 1 tablet p.o. daily. 6. Lantus 20 units at bedtime. 7. Farxiga 10 mg 1 tablet p.o. daily. 8. Tramadol 50 mg p.o. as needed for pain. cc: MD PATO Dodson
== END 2017-06-12 14:19 | disposition home or self-care (01) ==
LOC: P.ED 21:36 → P.MEDSURG 21:36 → SUATTDRO 21:42 → OBSVTOIN 06-05 01:09 → 3N 06-06 11:46 → 3S 06-06 16:02 → 3N 06-08 16:21 → 4N 06-09 16:14 → 3N 06-09 16:15
PROVIDERS: ATTEND Internal Medicine